=== PATIENT | male | born 1950 | race Caucasian/White ===

== ENCOUNTER 2016-09-11 13:01 | Inpatient (IN) | payer MEDICARE, OTHER ==
[2016-09-11] VITALS (7 sets, daily range): BP systolic 127–158; BP diastolic 62–71; PULSE 50–56; RESP 17–20; TEMP 97.8–99.2; O2SAT 96–100
[~2016-09-11] VITALS: Ht 167.6 cm; Wt 83.9 kg
[~2016-09-11 13:01] MED LIST: ASPI81TA82 PO; CLON.1 PO; FENO50TA PO; GLIP10TA6 PO; GLUCTAB PO; HYDR12.56 PO; IMDU30TA PO; LISI-363 PO; METO25 PO; MULT-65 PO; NITR4.9S3 SL; NORV10TA PO; PLAV75TA PO; RANO500 PO; ROSU40 PO
--- NOTE | 2016-09-11 13:09 | PD ---
Physical Exam Date Seen by Provider: September 11, 2016 Time Seen by Provider: 13:06 Narrative Pt is a 65 year old male presenting to the ED for evaluation of abdominal pain. Patient has pain from his epigastric area to the suprapubic area. He reports history of pancreatic abscess in June. Per pt's report a Ct scan was done in August and the cyst was still present. He also reports dark urine as well. After dinner last night the pain intensified, he felt nauseated and bloated. No documented fevers. VSS, awaiting bed placement. Data Data Last Documented VS Vital Signs Date Time Temp Pulse Resp B/P Pulse Ox O2 Delivery O2 Flow Rate FiO2 09/11/16 13:03 97.8 56 20 146/64 98 Room Air MDM Supervised Visit with SHADY: Shilpa Torres September 11, 2016 13:09
--- NOTE | 2016-09-11 13:17 | PD ---
HPI Chief Complaint: Abdominal Pain Time Seen by Provider: 13:16 Travel History International Travel<30 days: No Contact w/Intl Traveler<30days: No Traveled to known affect area: No History of Present Illness HPI 65 year old male with PMH of CHF, A. fib, CKD, DM, anemia, CAD status post bypass, PUD, pancreatitis presents to the ED for evaluation of 1 week history of left upper quadrant abdominal pain. Patient states this pain was worsened yesterday after eating a steak sandwich for dinner. He states that approximately 2 hours after dinner he began to feel increased pain, bloating and mild nausea. He states this pain is very similar to previous episodes of pancreatitis. He denies fever, chills, chest pain, palpitations, shortness of breath, vomiting, changes in bowel habits. He endorses increased passage of gas over the last week. Also complains of low volume of dark colored urine over the past few days. He is visiting from [place]. Patient endorses upper endoscopy in June of this year. PFSH Past Medical History Hx Anticoagulant Therapy: Yes Arthritis: Yes Cardiac Catheterization: Yes (X1) Cardiovascular Problems: Yes High Cholesterol: Yes Coronary Artery Disease: Yes Diabetes: Yes Diminished Hearing: Yes (gambell) Hypertension: Yes Immunizations Current: Yes Triglycerides - High: Yes Past Surgical History Coronary Artery Bypass Graft: Yes (X 2 BYPASS X 5) Coronary Stent: Yes (X1) Tonsillectomy: Yes Social History Alcohol Use: No Tobacco Use: No Substance Use: No Allergies-Medications (Allergen,Severity, Reaction): Coded Allergies: Morphine (Verified Adverse Reaction, Severe, Hallucinations, 09/11/16) Reported Meds & Prescriptions Reported Meds & Active Scripts Active Review of Systems Except as stated in HPI: all other systems reviewed are Neg Physical Exam Narrative GENERAL: Well-nourished, well-developed nontoxic appearing, pleasant white male in no acute distress. SKIN: Focused skin assessment warm/dry. Well-healed midline incisions over the chest and abdomen. Signs of infection. HEAD: Normocephalic. EYES: Mild scleral icterus. No injection or drainage. NECK: Supple, trachea midline. No JVD or lymphadenopathy. CARDIOVASCULAR: Regular rate and rhythm without murmurs, gallops, or rubs. RESPIRATORY: Breath sounds clear and equal bilaterally. No accessory muscle use. GASTROINTESTINAL: Abdomen soft, nondistended, tender to palpation in the right upper quadrant. Hyperactive bowel sounds. MUSCULOSKELETAL: No cyanosis, or edema. Patient is ambulatory and moves the extremities spontaneously. BACK: Nontender without obvious deformity. No CVA tenderness. Data Data Last Documented VS Vital Signs Date Time Temp Pulse Resp B/P Pulse Ox O2 Delivery O2 Flow Rate FiO2 09/11/16 15:10 50 18 127/62 99 Room Air 09/11/16 13:03 97.8 Orders Complete Blood Count With Diff (09/11/16 13:36) Comprehensive Metabolic Panel (09/11/16 13:36) Lipase (09/11/16 13:36) Lactic Acid (09/11/16 13:36) Prothrombin Time / Inr (Pt) (09/11/16:36) Act Partial Throm Time (Ptt) (09/11/16 13:36) Urinalysis - C+S If Indicated (09/11/16 13:36) Iv Access Insert/Monitor (09/11/16 13:36) Ecg Monitoring (09/11/16 13:36) Oximetry (09/11/16 13:36) NPO (09/11/16 13:36) Ondansetron Inj (Zofran Inj) (09/11/16 13:45) Sodium Chlor 0.9% 1000 Ml Inj (Ns 1000 M (09/11/16 13:36) Sodium Chloride 0.9% Flush (Ns Flush) (09/11/16 13:45) Electrocardiogram (09/11/16 13:36) Piperacil-Tazo 4.5 Gm Premix (Zosyn 4.5 (09/11/16 16:00) Us Abdomen Gallbladder (09/11/16 16:06) Ct Abd/Pel W Iv Contrast(Rout) (09/11/16 16:06) Labs Laboratory Tests Test 09/11/16 09/11/16 14:20 15:55 White Blood Count 9.3 TH/MM3 Red Blood Count 3.38 MIL/MM3 Hemoglobin 10.5 GM/DL Hematocrit 30.5 % Mean Corpuscular Volume 90.2 FL Mean Corpuscular Hemoglobin 31.0 PG Mean Corpuscular Hemoglobin 34.4 % Concent Red Cell Distribution Width 14.6 % Platelet Count 158 TH/MM3 Mean Platelet Volume 9.3 FL Neutrophils (%) (Auto) 80.4 % Lymphocytes (%) (Auto) 5.9 % Monocytes (%) (Auto) 10.0 % Eosinophils (%) (Auto) 3.2 % Basophils (%) (Auto) 0.5 % Neutrophils # (Auto) 7.5 TH/MM3 Lymphocytes # (Auto) 0.6 TH/MM3 Monocytes # (Auto) 0.9 TH/MM3 Eosinophils # (Auto) 0.3 TH/MM3 Basophils # (Auto) 0.0 TH/MM3 CBC Comment DIFF FINAL Differential Comment Prothrombin Time 11.6 SEC Prothromb Time International 1.0 RATIO Ratio Activated Partial 30.8 SEC Thromboplast Time Sodium Level 134 MEQ/L Potassium Level 4.9 MEQ/L Chloride Level 101 MEQ/L Carbon Dioxide Level 24.2 MEQ/L Anion Gap 9 MEQ/L Blood Urea Nitrogen 22 MG/DL Creatinine 1.27 MG/DL Estimat Glomerular Filtration 57 ML/MIN Rate Random Glucose 139 MG/DL Lactic Acid Level 1.1 mmol/L Calcium Level 9.0 MG/DL Total Bilirubin 4.3 MG/DL Aspartate Amino Transf 193 U/L (AST/SGOT) Alanine Aminotransferase 211 U/L (ALT/SGPT) Alkaline Phosphatase 1417 U/L Total Protein 7.9 GM/DL Albumin 2.9 GM/DL Lipase 44 U/L Urine Color YELLOW Urine Turbidity CLEAR Urine pH 5.0 Urine Specific [place] 1.011 Urine Protein NEG mg/dL Urine Glucose (UA) NEG mg/dL Urine Ketones NEG mg/dL Urine Occult Blood NEG Urine Nitrite NEG Urine Bilirubin NEG Urine Urobilinogen 2.0 MG/DL Urine Leukocyte Esterase NEG Urine RBC LESS THAN 1 /hpf Urine Mucus FEW /lpf Microscopic Urinalysis Comment CULT NOT INDICATED MDM Medical Decision Making Medical Screen Exam Complete: Yes Emergency Medical Condition: Yes Differential Diagnosis PUD versus GERD versus chest pain versus CHF versus pancreatitis versus gastritis versus obstruction versus other Narrative Course 65 year old male with PMH of CHF, A. fib, CKD, DM, anemia, CAD s/p bypass, PUD, pancreatitis presents to the ED for evaluation of 1 week history of left upper quadrant abdominal pain. Worsened ~2 hours after eating a steak sandwich for dinner. Endorses bloating and mild nausea. He denies fever, chills, chest pain , palpitations, shortness of breath, vomiting, changes in bowel habits. He endorses increased passage of gas over the last week. Also complains of low volume of dark colored urine over the past few days. He states this pain is very similar to previous episodes of pancreatitis. Patient states this was 2/2 pancreatic cyst. He underwent drain placement in Jun. He is visiting from [place]. Patient endorses upper endoscopy in June of this year. Temp 97.8, pulse 56, BP 146/64 on presentation. Physical exam reveals a nontoxic- appearing white male in no acute distress. There is mild scleral icterus and tenderness to palpation in the right upper quadrant but the remaining physical exam is otherwise unremarkable. IV was established. Patient was presenting continuous monitoring. He was administered a liter of normal saline and 4 mg Zofran. CBC: WBC 9.3, hemoglobin 10.5. CMP: BUN 22, creatinine 1.27. Bilirubin 4.3, AST 193, ALT 211, alkaline phosphatase 1417. Lipase: 44. Lactic: 1.1. UA: pending EKG: Rate 49, sinus rhythm. MI interval 135, QRS 104, QTC 437. LAD. No ST elevations or depressions. Reviewed by Dr. Brito. Patient was administered 4.[address] and LUQ ultrasound ordered and pending. Suspect biliary obstruction, possible cancer. Dr. Brito spoke with Dr. Hopper who agrees to accept the patient to the medical service with GI consult. Please see their notes for disposition. Diagnosis Primary Impression: Acute hepatitis Sharon Lujan September 11, 2016 13:17
[2016-09-11] MEDS ORDERED: SODIUM CHLOR 0.9% 1000 ML INJ 1,000 ML IV SCH (13:36)
[2016-09-11] MEDS ORDERED: SODIUM CHLORIDE 0.9% FLUSH 10 ML FLUSH IV FLUSH PRN ×2 (13:45→16:45)
[2016-09-11] MEDS ORDERED: ONDANSETRON HCL 4 MG/2 ML VIAL IVP ONE (13:45)
[2016-09-11 14:52] LABS: AUTOMATED NEUTROPHIL # 7.5 TH/MM3 (1.8-7.7); BASOPHIL % 0.5 % (0.0-2.0); EOSINOPHIL # 0.3 TH/MM3 (0-0.4); EOSINOPHIL % 3.2 % (0.0-4.0); HEMATOCRIT 30.5 % (39.0-51.0); HEMO FLAGS DIFF FINAL; LYMPH % 5.9 % (9.0-44.0); LYMPHOCYTE # 0.6 TH/MM3 (1.0-4.8); MEAN CELL VOLUME 90.2 FL (80.0-100.0); MEAN CORPUSCULAR HGB CONC 34.4 % (32.0-36.0); NEUT % 80.4 % (16.0-70.0); PLATELET COUNT 158 TH/MM3 (150-450); RED BLOOD COUNT 3.38 MIL/MM3 (4.50-5.90); RED CELL DISTRIBUTION WIDTH 14.6 % (11.6-17.2); WHITE BLOOD COUNT 9.3 TH/MM3 (4.0-11.0)
[2016-09-11 15:16] LABS: ANION GAP 9 MEQ/L (5-15); AST (GOT) 193 U/L (15-37); BICARBONATE 24.2 MEQ/L (21.0-32.0); BLOOD UREA NITROGEN 22 MG/DL (7-18); CHLORIDE 101 MEQ/L (98-107); GLOMERULAR FILTRATION RATE 57 ML/MIN (>89); SODIUM (NA) 134 MEQ/L (136-145)
[2016-09-11 15:22] LABS: APTT (PATIENT) 30.8 SEC (24.3-30.1); PROTHROMBIN TIME - PATIENT 11.6 SEC (9.8-11.6)
[2016-09-11 15:24] LABS: ALKALINE PHOSPHATASE 1417 U/L (45-117); ALT (GPT) 211 U/L (12-78); POTASSIUM 4.9 MEQ/L (3.5-5.1); TOTAL BILIRUBIN ADULT 4.3 MG/DL (0.2-1.0)
[2016-09-11] MEDS ORDERED: PIPERACIL-TAZO 4.5 GM PREMIX 100 ML IV ONE (16:00)
[2016-09-11 16:24] LABS: BLOOD, URINE NEG (NEG); COMMENT (UR) CULT NOT INDICATED; CULTURE IF INDICATED CULT NOT INDICATED; GLUCOSE,URINE NEG (NEG); KETONE, URINE NEG (NEG); MUCUS URINE FEW /lpf (OCC); NITRITE,URINE NEG (NEG); URINE COLOR YELLOW (YELLW/STRAW)
[2016-09-11] MEDS ORDERED: IOHEXOL 350 MG/ML 10 ML VIAL (for RAD DIAG) IV ONE (16:38)
[2016-09-11] MEDS ORDERED: BISACODYL 10 MG SUPP RECTAL PRN (16:45)
[2016-09-11] MEDS ORDERED: NALOXONE HCL 0.4 MG/ML AMP IV PRN (16:45)
[2016-09-11] MEDS ORDERED: ACETAMINOPHEN 325 MG TAB PO PRN (16:45)
[2016-09-11] MEDS ORDERED: ONDANSETRON HCL 4 MG/2 ML VIAL IVP PRN (16:45)
--- NOTE | 2016-09-11 17:02 | RADRPT ---
EXAM DATE/TIME: 09/11/2016 16:31 [facility] COMPARISON: No previous studies available for comparison. INDICATIONS : left upper quadrant pain past week. IV CONTRAST: 95 cc Omnipaque 350 (iohexol) IV ORAL CONTRAST: No oral contrast ingested. RADIATION DOSE: 11.56 CTDIvol (mGy) MEDICAL HISTORY : Cardiovascular disease. Hyperparathyroidism. Diabetes mellitus type 2. SURGICAL HISTORY : CABG ENCOUNTER: Initial ACUITY: 1 week PAIN SCALE: 7/10 LOCATION: Left upper quadrant TECHNIQUE: Volumetric scanning of the abdomen and pelvis was performed. Using automated exposure control and ad justment of the mA and/or kV according to patient size, radiation dose was kept as low as reasonably achievable to obtain optimal diagnostic quality images. FINDINGS: The head of the pancreas is enlarged to at least 6.3 cm. There is enlargement of the proximal pancrea tic duct and there is intra-and extrahepatic biliary ductal dilatation with the common bile duct abe uring 13 mm. The enlargement of the pancreatic head appears masslike and concern is for pancreatic ma lignancy. However pancreatitis could give this appearance especially given the stranding of fat aroun d the pancreas. There is mural thickening of the adjacent stomach and duodenum. There is stranding of fat extending into the right paracolic bladder and there is a small amount of free fluid. Pancreatic calcifications are characteristic of chronic pancreatitis. No suspicious lesions identified within the liver, spleen, adrenals, kidneys. There several borderline enlarged mesenteric lymph nodes. Within the pelvis no mass or adenopathy is present. No acute bony abnormality. CONCLUSION: 1. Enlargement of pancreatic head to 6.2 cm. Differential diagnosis is acute pancreatitis and pancrea tic malignancy. There is biliary ductal dilatation. There is thickening and edematous change in the a djacent stomach and proximal duodenum. There are borderline enlarged mesenteric lymph nodes. There is some free fluid in the right paracolic gutter and Pradhan's pouch. Royce Forbes MD on September 11, 2016 at 16:49 Board Certified Radiologist. This report was verified electronically.
[2016-09-11] MEDS: PANTOPRAZOLE SODIUM 40 MG VIAL IV PUSH SCH (17:14)
[2016-09-11] MEDS: SODIUM CHLOR 0.9% 1000 ML INJ 1,000 ML IV SCH (17:14)
[2016-09-11] MEDS ORDERED: TAMS0.4C4 PO (17:19)
[2016-09-11] MEDS ORDERED: POTA1TAB4 PO (17:19)
[2016-09-11] MEDS ORDERED: PROT40TA PO (17:19)
[2016-09-11] MEDS ORDERED: FURO1TAB62 PO ×2 (17:19→17:21)
[2016-09-11] MEDS ORDERED: LEVEMIR SQ (17:19)
[2016-09-11] MEDS ORDERED: MAGN400T2 PO (17:19)
[2016-09-11] MEDS ORDERED: INSU100V3 SQ (17:19)
[2016-09-11] MEDS ORDERED: VITA200012 PO (17:19)
--- NOTE | 2016-09-11 17:22 | PD.CONS ---
HPI History of Present Illness This is a 65 year old [gentleman] presented to the ER today with epigastric and lower abd pain. 8 ago he started having lower abd tenderness, belching with foul odor. Per his that is also when she noticed his yellow eyes. 5 days ago he noticed dark urine. A few days ago he started having diarrhea which lasted a day and a half and since. Subsequently he would have early satiety, epigastric discomfort and bloating after eating. Last night he had a steak sandwich and a few hours later he had the bloating and early satiety and severe pain in the lower abdomen along with nausea, dizziness. He had a "gall bladder " attack June 2015 and was dianosed with gangrenous gallbladder and had cholecystectomy. Hx severe acute pancreatitis last December in [place], was in ICU for 30 days. This past April he was back in hospital for anemia and a pancreatic cyst. HE has hx CHF. Last BM 36h ago and was soft but not liquidy. Denies vomiting, fever, diarrhea at this time, tarry stools, acid reflux. He did have an EGD in Jun 2016, doesn't recall specific findings. He has h/o ulcers. (Adali Mena) PFSH Past Medical History Per documentation from his prev GI visit: anemia pseudocyst of pancreas acute gangrenous cholecystitis acute pancreatitis CAD [place] CHF AF Necrotizing pancreatitis CKD DM hem pos stool recent - Jun 2016 thrombocytopenia gastric ulcer Past Surgical History cholecystectomy insertion drain abdomen for pseudocyst repair bilat femurs CABG x 2 times stent placement knee surgery x 12 right knee (Adali Mena) Coded Allergies: Morphine (Verified Adverse Reaction, Severe, Hallucinations, 09/11/16) Medications Current Medications Medications (Trade) Dose Ordered Sig/Anna Route PRN Reason Start Time Stop Time Status Last Admin Dose Admin Sodium Chloride (NS 1000 ml Inj) 1,000 ml @ 100 mls/hr Q10H IV 09/11/16 16:31 09/11/16 17:14 Sodium Chloride (NS Flush) 2 ml UNSCH PRN IV FLUSH FLUSH AFTER USING IV ACCESS 09/11/16 16:45 Sodium Chloride (NS Flush) 2 ml BID IV FLUSH 09/11/16 21:00 Acetaminophen (Tylenol) 650 mg Q4H PRN PO TEMP > 100.4 09/11/16 16:45 Ondansetron HCl (Zofran Inj) 4 mg Q6H PRN IVP NAUSEA OR VOMITING 09/11/16 16:45 Bisacodyl (Dulcolax Supp) 10 mg DAILY PRN RECTAL CONSTIPATION 09/11/16 16:45 Docusate Sodium (Colace) 100 mg Q12H PO 09/11/16 18:00 Heparin Sodium (Porcine) (Heparin Inj) 5,000 units Q8H SQ 09/11/16 18:00 Naloxone HCl 0.4 mg 0.4 mg UNSCH PRN IV SEE LABEL COMMENTS 09/11/16 16:45 Piperacillin Sod/ Tazobactam Sod (Zosyn 3.375 Gm Premix) 50 ml @ 100 mls/hr Q6H IV 09/11/16 22:00 Pantoprazole Sodium (Protonix Inj) 40 mg Q12H IV PUSH 09/11/16 17:00 09/11/16 17:14 Hydromorphone HCl (Dilaudid Pf Inj) 0.5 mg Q4H PRN IV PUSH PAIN SCALE 5 TO 10 09/11/16 16:45 Family History CVD prostate cancer- father asthma - mother Social History no etoh, tobacco, illicit drugs (Adali Mena) Review of Systems Constitutional: DENIES: Fever Eyes: DENIES: Blurred vision Ears, nose, mouth, throat: DENIES: Hearing loss Respiratory: DENIES: Cough Cardiovascular: DENIES: Chest pain Gastrointestinal: COMPLAINS OF: Abdominal pain, Nausea, Swelling of Abdomen, DENIES: Black stools, Bloody stools, Constipation, Diarrhea, Vomiting Genitourinary: DENIES: Hematuria Musculoskeletal: DENIES: Muscle aches Integumentary: COMPLAINS OF: Jaundice Hematologic/lymphatic: COMPLAINS OF: Bruising Neurologic: DENIES: Abnormal gait Psychiatric: DENIES: Confusion (Adali Mena) GI Exam Vitals I&O Vital Signs Date Time Temp Pulse Resp B/P Pulse Ox O2 Delivery O2 Flow Rate FiO2 09/11/16 16:46 100 21 09/11/16 15:10 50 18 127/62 99 Room Air 09/11/16 14:15 18 09/11/16 14:15 18 96 Room Air 09/11/16 13:03 97.8 56 20 146/64 98 Room Air Imaging Last Impressions Abdomen/Pelvis CT 09/11/16 1606 Signed Impressions: Service Date/Time: September 16:31 - CONCLUSION: 1. Enlargement of pancreatic head to 6.2 cm. Differential diagnosis is acute pancreatitis and pancreatic malignancy. There is biliary ductal dilatation. There is thickening and edematous change in the adjacent stomach and proximal duodenum. There are borderline enlarged mesenteric lymph nodes. There is some free fluid in the right paracolic gutter and Pradhan's pouch. Royce Forbes MD Laboratory Test 09/11/16 09/11/16 14:20 15:55 White Blood Count 9.3 TH/MM3 Red Blood Count 3.38 MIL/MM3 Hemoglobin 10.5 GM/DL Hematocrit 30.5 % Mean Corpuscular Volume 90.2 FL Mean Corpuscular Hemoglobin 31.0 PG Mean Corpuscular Hemoglobin 34.4 % Concent Red Cell Distribution Width 14.6 % Platelet Count 158 TH/MM3 Mean Platelet Volume 9.3 FL Neutrophils (%) (Auto) 80.4 % Lymphocytes (%) (Auto) 5.9 % Monocytes (%) (Auto) 10.0 % Eosinophils (%) (Auto) 3.2 % Basophils (%) (Auto) 0.5 % Neutrophils # (Auto) 7.5 TH/MM3 Lymphocytes # (Auto) 0.6 TH/MM3 Monocytes # (Auto) 0.9 TH/MM3 Eosinophils # (Auto) 0.3 TH/MM3 Basophils # (Auto) 0.0 TH/MM3 CBC Comment DIFF FINAL Differential Comment Prothrombin Time 11.6 SEC Prothromb Time International 1.0 RATIO Ratio Activated Partial 30.8 SEC Thromboplast Time Sodium Level 134 MEQ/L Potassium Level 4.9 MEQ/L Chloride Level 101 MEQ/L Carbon Dioxide Level 24.2 MEQ/L Anion Gap 9 MEQ/L Blood Urea Nitrogen 22 MG/DL Creatinine 1.27 MG/DL Estimat Glomerular Filtration 57 ML/MIN Rate Random Glucose 139 MG/DL Lactic Acid Level 1.1 mmol/L Calcium Level 9.0 MG/DL Total Bilirubin 4.3 MG/DL Aspartate Amino Transf 193 U/L (AST/SGOT) Alanine Aminotransferase 211 U/L (ALT/SGPT) Alkaline Phosphatase 1417 U/L Total Protein 7.9 GM/DL Albumin 2.9 GM/DL Lipase 44 U/L Urine Color YELLOW Urine Turbidity CLEAR Urine pH 5.0 Urine Specific [place] 1.011 Urine Protein NEG mg/dL Urine Glucose (UA) NEG mg/dL Urine Ketones NEG mg/dL Urine Occult Blood NEG Urine Nitrite NEG Urine Bilirubin NEG Urine Urobilinogen 2.0 MG/DL Urine Leukocyte Esterase NEG Urine RBC LESS THAN 1 /hpf Urine Mucus FEW /lpf Microscopic Urinalysis Comment CULT NOT INDICATED Physical Examination HEENT: EOMI; normocephalic; atraumatic; +icterus CHEST: CTA CARDIAC: RRR ABDOMEN: Soft, nondistended, TTP lower abd, epigastrum; no hepatosplenomegaly; bowel sounds are present in all four quadrants. EXTREMITIES: No clubbing, cyanosis, or edema. SKIN: Normal; no rash; jaundice. POSTPARTUM RN: No focal deficits; alert and oriented times three. (Adali Mena) Assessment and Plan Plan ASSESSMENT - epigastric and lower abd pain, nausea - pt has hx acalc gangrenous cholecystitis s/p cholecystectomy, acute pancreatitis requiring stay in ICU for 30 days, pancreatic pseudocyst. CT ---> 1. Enlargement of pancreatic head to 6.2 cm. Differential diagnosis is acute pancreatitis and pancreatic malignancy. There is biliary ductal dilatation. There is thickening and edematous change in the adjacent stomach and proximal duodenum. There are borderline enlarged mesenteric lymph nodes. There is some free fluid in the right paracolic gutter and Pradhan's pouch. Will do ERCP. He may need EUS later on. - elevated LFTs with jaundice- obstructive pattern, suspect secondary to above. PLAN - ERCP with stent placement tomorrow - clears for now - monitor labs - check CEA, CA 19-9 - IGG4 - lipid panel - supportive care - further recommendations after results of above This pt seen by myself and Dr Sam and this note is written on her behalf ( Adali Mena) Physician Comments seen, examined agree with above ERCP/stent in am will need EUS at one point obtain records , had recent ct abdomen/pelvis (Lindsay Sam MD) Adali Mena September 11, 2016 17:22 Lindsay Sam MD September 11, 2016 18:19
[2016-09-11] MEDS ORDERED: ISOS30TA3 PO (17:25)
[2016-09-11] MEDS ORDERED: MULTTAB67 PO (17:25)
[2016-09-11] MEDS ORDERED: CARV3.12 PO (17:25)
[2016-09-11] MEDS ORDERED: NITR400A3 SL (17:25)
[2016-09-11] MEDS ORDERED: LISI-519 PO (17:25)
[2016-09-11] MEDS ORDERED: RANO500 PO (17:25)
[2016-09-11] MEDS ORDERED: ATOR40TA16 PO (17:25)
[2016-09-11] MEDS ORDERED: ASPI81TA5 PO (17:25)
--- NOTE | 2016-09-11 17:56 | HHI.HP ---
HPI Service [facility] Primary Care Physician Non-Staff Admission Diagnosis jaundice Diagnoses: Chief Complaint: Abdominal pain Travel History International Travel<30 Days: No Contact w/Intl Traveler <30 Da: No Traveled to Known Affected Are: No History of Present Illness 65-year-old male with a past medical history of CAD, A. fib, CHF, BPH, DM, PUD, and pancreatitis who presented with abdominal pain. The patient states that 8 days ago he began having abdominal discomfort. He states it felt like he was kicked in the stomach in a bandlike distribution across his midabdomen. He states that his symptoms got a little bit better for 2 or 3 days, but then having getting progressively worse since then. He's been having associated nausea and bloating. He denies any vomiting, but he feels scared to eat. He states that 5 days ago he had diarrhea, now his stools are soft but no longer watery. He states that he had chills last night, denies any specific fevers. The patient's reports that the patient has appeared yellow for the past 10 days. The patient states that last July he had his gallbladder removed. The patient states that he had an extensive hospitalization last December when he was critically ill from pancreatitis. He states he also had a hospitalization in May and June of this year where he had a pancreatic cyst that required a drain placement. The patient states that most of this workup was done where he lives most of the time in [place], but he also has a house here in the area where he and his are visiting currently. Review of Systems Except as stated in HPI: all other systems reviewed are Neg Past Family Social History Past Medical History Hypertension A. fib Diabetes mellitus Peptic ulcer disease Coronary artery disease Chronic kidney disease History of pancreatitis Congestive heart failure Past Surgical History cholecystectomy insertion drain abdomen for pseudocyst CABG x 2 times Carotid stent placement, last one in 2012 knee surgeries right knee femur surgery bilaterally Reported Medications Aspirin DR (Aspirin) 81 Mg Tabdr 81 Mg PO HS Isosorbide Mononitrate ER (Isosorbide Mononitrate) 30 Mg Cee 30 Mg PO DAILY Lisinopril 5 Mg Tab 5 Mg PO BID Multiple Vitamin 1 Tab 1 Tab PO DAILY Nitromist Lingual Branscomb (Nitroglycerin) 400 Mcg/Act Branscomb 1 Branscomb SL DIRECTED PRN ONE SPRAY NEEDED FOR CHEST PAIN, MAY REPEAT EVERY FIVE MINUTES FOR A TOTAL OF 3 DOSES OR CALL 911 IF NO RELIEF Ranexa ER 12 HR (Ranolazine) 500 Mg Tab 500 Mg PO BID Atorvastatin (Atorvastatin Calcium) 40 Mg Tab 40 Mg PO HS Carvedilol 3.125 Mg Tab 3.125 Mg PO DAILY Lasix (Furosemide) 20 Mg Tab 20 Mg PO DAILY Lasix (Furosemide) 20 Mg Tab 20 Mg PO BID Humulin N Inj (Insulin Human NPH) 1,000 Unit/10 Ml Vial Unknown Dose SQ ACHS PRN Vitamin D3 (Cholecalciferol) 2,000 Unit Tab 2,000 Units PO DAILY Levemir Inj (Insulin Detemir) 1,000 unit/ 10 ML Vial 10 Units SQ BID Do not mix with any other Insulin. Magnesium Oxide 400 Mg Tab 400 Mg PO HS Protonix (Pantoprazole Sodium) 40 Mg Tab 40 Mg PO DAILY Tamsulosin (Tamsulosin HCl) 0.4 Mg Cap 0.4 Mg PO HS K-Tab (Potassium Chloride) 20 Meq Tab 20 Meq PO DAILY Allergies: Coded Allergies: Morphine (Verified Adverse Reaction, Severe, Hallucinations, 09/11/16) Active Ordered Medications Current Medications Medications (Trade) Dose Ordered Sig/Anna Route Start Time Stop Time Status Last Admin (NS 1000 ml Inj) 1,000 ml @ 70 mls/hr [id number] IV 09/11/16 16:31 09/11/16 17:14 (NS Flush) 2 ml UNSCH PRN IV FLUSH 09/11/16 16:45 (NS Flush) 2 ml BID IV FLUSH 09/11/16 21:00 (Tylenol) 650 mg Q4H PRN PO 09/11/16 16:45 (Zofran Inj) 4 mg Q6H PRN IVP 09/11/16 16:45 (Dulcolax Supp) 10 mg DAILY PRN RECTAL 09/11/16 16:45 (Colace) 100 mg Q12H PO 09/11/16 18:00 (Heparin Inj) 5,000 units Q8H SQ 09/11/16 18:00 Naloxone HCl 0.4 mg 0.4 mg UNSCH PRN IV 09/11/16 16:45 (Zosyn 3.375 Gm Premix) 50 ml @ 100 mls/hr Q6H IV 09/11/16 22:00 (Protonix Inj) 40 mg Q12H IV PUSH 09/11/16 17:00 09/11/16 17:14 (Dilaudid Pf Inj) 0.5 mg Q4H PRN IV PUSH 09/11/16 16:45 (Lipitor) 40 mg HS PO 09/11/16 21:00 UNV (Coreg) 3.125 mg DAILY PO 09/12/16 09:00 UNV (Levemir Inj) 10 units BID SQ 09/11/16 21:00 UNV (Imdur) 30 mg DAILY PO 09/12/16 09:00 UNV (Prinivil) 5 mg BID PO 09/11/16 21:00 UNV (Protonix) 40 mg DAILY PO 09/12/16 09:00 UNV (Ranexa) 500 mg BID PO 09/11/16 21:00 UNV (Flomax) 0.4 mg HS PO 09/11/16 21:00 UNV Family History Father had a heart attack and prostate cancer Mother had asthma Social History no etoh, tobacco, illicit drugs Physical Exam Vital Signs Vital Signs Date Time Temp Pulse Resp B/P Pulse Ox O2 Delivery O2 Flow Rate FiO2 09/11/16 16:46 100 21 09/11/16 15:10 50 18 127/62 99 Room Air 09/11/16 14:15 18 09/11/16 14:15 18 96 Room Air 09/11/16 13:03 97.8 56 20 146/64 98 Room Air Physical Exam GENERAL: Well-developed well-nourished. In no acute distress. SKIN: Warm and dry. Jaundiced. HEENT: Normocephalic. Pupils equal and round. Scleral icterus. Mucous membranes pink and moist. CARDIOVASCULAR: Regular rate and rhythm. No murmur appreciated. RESPIRATORY: No accessory muscle use. Clear to auscultation. Breath sounds equal bilaterally. GASTROINTESTINAL: Abdomen soft, generalized mild TTP, nondistended. Bowel sounds x4. MUSCULOSKELETAL: No obvious deformities. No clubbing or cyanosis. No edema. NEUROLOGICAL: Awake and alert. No focal neurological deficits. Moves upper and lower extremities spontaneously. Normal speech. PSYCHIATRIC: Appropriate mood and affect; insight and judgment normal. Laboratory Laboratory Tests Test 09/11/16 09/11/16 14:20 15:55 White Blood Count 9.3 Red Blood Count 3.38 Hemoglobin 10.5 Hematocrit 30.5 Mean Corpuscular Volume 90.2 Mean Corpuscular Hemoglobin 31.0 Mean Corpuscular Hemoglobin 34.4 Concent Red Cell Distribution Width 14.6 Platelet Count 158 Mean Platelet Volume 9.3 Neutrophils (%) (Auto) 80.4 Lymphocytes (%) (Auto) 5.9 Monocytes (%) (Auto) 10.0 Eosinophils (%) (Auto) 3.2 Basophils (%) (Auto) 0.5 Neutrophils # (Auto) 7.5 Lymphocytes # (Auto) 0.6 Monocytes # (Auto) 0.9 Eosinophils # (Auto) 0.3 Basophils # (Auto) 0.0 CBC Comment DIFF FINAL Differential Comment Prothrombin Time 11.6 Prothromb Time International 1.0 Ratio Activated Partial 30.8 Thromboplast Time Sodium Level 134 Potassium Level 4.9 Chloride Level 101 Carbon Dioxide Level 24.2 Anion Gap 9 Blood Urea Nitrogen 22 Creatinine 1.27 Estimat Glomerular Filtration 57 Rate Random Glucose 139 Lactic Acid Level 1.1 Calcium Level 9.0 Total Bilirubin 4.3 Aspartate Amino Transf 193 (AST/SGOT) Alanine Aminotransferase 211 (ALT/SGPT) Alkaline Phosphatase 1417 Total Protein 7.9 Albumin 2.9 Lipase 44 Urine Color YELLOW Urine Turbidity CLEAR Urine pH 5.0 Urine Specific [place] 1.011 Urine Protein NEG Urine Glucose (UA) NEG Urine Ketones NEG Urine Occult Blood NEG Urine Nitrite NEG Urine Bilirubin NEG Urine Urobilinogen 2.0 Urine Leukocyte Esterase NEG Urine RBC LESS THAN 1 Urine Mucus FEW Microscopic Urinalysis Comment CULT NOT INDICATED Result Diagram: 09/11/16 1420 09/11/16 1420 Imaging Last Impressions Abdomen/Pelvis CT 09/11/16 1606 Signed Impressions: Service Date/Time: September 16:31 - CONCLUSION: 1. Enlargement of pancreatic head to 6.2 cm. Differential diagnosis is acute pancreatitis and pancreatic malignancy. There is biliary ductal dilatation. There is thickening and edematous change in the adjacent stomach and proximal duodenum. There are borderline enlarged mesenteric lymph nodes. There is some free fluid in the right paracolic gutter and Pradhan's pouch. Royce Forbes MD Assessment and Plan Assessment and Plan 65-year-old male with a past medical history of CAD, A. fib, CHF, BPH, DM, PUD, and pancreatitis who presented with abdominal pain Abdominal pain/obstructive jaundice/pancreatic mass: Reviewed: Elevation of total bilirubin, AST, ALT, alkaline phosphatase. Lipase within normal limits. Abdominal CT shows enlargement of the pancreatic head with possible mass, biliary ductal dilation, thickening and edematous change adjacent stomach and proximal duodenum, Motrin and mesenteric lymph nodes, free fluid in the right paracolic gutter and Morison's pouch. Afebrile with no leukocytosis. -Consult gastroenterology -Clear liquids for now -IV Dilaudid as needed for pain -Gentle IVF with CHF -Antiemetics as needed -IV Zosyn -IV Protonix Diabetes mellitus: Continue home Levemir. Monitor Accu-Cheks. SSI coverage. A. fib/CAD/CHF/HTN/HLD: Chronic, stable. Hold him aspirin for now pending possible GI procedure. Continue lisinopril, tamsulosin, Ranexa, carvedilol, atorvastatin, Imdur. Hold Lasix for now. DVT prophylaxis: Heparin Code Status Full Code Discussed Condition With Patient with at bedside, Dr. Hopper at bedside, GI ENVIRONMENTAL ENGINEERING TECHNICIAN Attending Statement Patient seen in his bedroom in the presence of ESTRELLA Mr. Davis and his continue present care and follow closely, GI specialist in to see the patient. Ryan Ramirez September 11, 2016 17:56 J Luis Keys MD September 11, 2016 19:26
--- NOTE | 2016-09-11 17:59 | EKG ---
Date Performed: 09/11/2016 Time Performed: 14:33:13 PTAGE: 65 years EKG: SINUS BRADYCARDIA MARKED LEFT AXIS DEVIATION SEPTAL MYOCARDIAL INFARCTION ABNORMAL ECG NO PREVIOUS TRACING DOCTOR: Lars Mejía Interpretating Date/Time 09/11/2016 17:58:34
[2016-09-11] MEDS ORDERED: DEXTROSE 50% IN WATER 50 ML VIAL(D50) IV PUSH PRN (18:00)
[2016-09-11] MEDS: DOCUSATE SODIUM 100 MG CAP PO SCH (18:00)
[2016-09-11] MEDS ORDERED: GLUCAGON 1 MG/ML VIAL OTHER PRN (18:00)
[2016-09-11] MEDS: HEPARIN SODIUM - SQ 10,000 UNITS/ML VIAL SQ SCH (18:35)
--- NOTE | 2016-09-11 18:43 | RADRPT ---
EXAM DATE/TIME: 09/11/2016 17:40 [place] COMPARISON: CT PULMONARY ANGIOGRAM, December 29, 2014, 14:56. CT ABDOMEN & PELVIS W CONTRAST, September 11, 2016, 16:31. INDICATIONS : Right upper quadrant pain. MEDICAL HISTORY : Arthritis. Hypercholesterolemia. Pancreatitis. Coronary arterdy disease. HTN. Hyperlipidemia. Abdomin al pain. Diabetes. Jaundice. SURGICAL HISTORY : Tonsillectomy. CABG. Coronary artery stent. Cholecystectomy. Cardiac cath. Bilateral femur surgery wi th screws and plates. Right knee. Bilateral hip.Pancreas cyst stent. ENCOUNTER: Initial ACUITY: 1 week PAIN SCORE: 7/10 LOCATION: Right upper quadrant MEASUREMENTS: LIVER: 20.2 cm length COMMON DUCT: 12 mm RIGHT KIDNEY: 11.9 x 6.2 x 5.9 cm FINDINGS: LIVER: Pronounced biliary ductal dilatation. COMMON DUCT: Dilated GALLBLADDER: Surgically absent PANCREAS: Large heterogeneous pancreatic head mass RIGHT KIDNEY: No evidence of hydronephrosis, stone, or mass. CONCLUSION: Pancreatic head mass with prominent biliary ductal dilatation Patrick Walsh MD on September 11, 2016 at 18:38 Board Certified Radiologist. This report was verified electronically.
[2016-09-11 18:59] LABS: CREATINE KINASE 151 U/L (39-308)
--- NOTE | 2016-09-11 19:12 | PD ---
Data Data Last Documented VS Vital Signs Date Time Temp Pulse Resp B/P Pulse Ox O2 Delivery O2 Flow Rate FiO2 09/11/16 15:10 50 18 127/62 99 Room Air 09/11/16 13:03 97.8 Orders Complete Blood Count With Diff (09/11/16 13:36) Comprehensive Metabolic Panel (09/11/16 13:36) Lipase (09/11/16 13:36) Lactic Acid (09/11/16:36) Prothrombin Time / Inr (Pt) (09/11/16:36) Act Partial Throm Time (Ptt) (09/11/16 13:36) Urinalysis - C+S If Indicated (09/11/16:36) Iv Access Insert/Monitor (09/11/16:36) Ecg Monitoring (09/11/16:36) Oximetry (09/11/16:36) NPO (09/11/16:36) Ondansetron Inj (Zofran Inj) (09/11/16 13:45) Sodium Chlor 0.9% 1000 Ml Inj (Ns 1000 M (09/11/16 13:36) Sodium Chloride 0.9% Flush (Ns Flush) (09/11/16 13:45) Electrocardiogram (09/11/16 13:36) Piperacil-Tazo 4.5 Gm Premix (Zosyn 4.5 (09/11/16 16:00) Us Abdomen Gallbladder (09/11/16 16:06) Ct Abd/Pel W Iv Contrast(Rout) (09/11/16 16:06) Admit Order (Ed Use Only) (09/11/16 16:32) Admit To Inpatient (09/11/16 ) Code Status (09/11/16 16:31) Vital Signs (Adult) Q4H (09/11/16 16:31) Activity Oob Ad Rafia (09/11/16 16:31) Puller Over / Telemetry .CONTINUOUS (09/11/16 16:31) Intake + Output AMPARO.QSHIFT (09/11/16 16:31) Notify Dr: Other (09/11/16 16:31) Sodium Chlor 0.9% 1000 Ml Inj (Ns 1000 M (09/11/16 16:31) Sodium Chloride 0.9% Flush (Ns Flush) (09/11/16 16:45) Sodium Chloride 0.9% Flush (Ns Flush) (09/11/16 21:00) Acetaminophen (Tylenol) (09/11/16 16:45) Ondansetron Inj (Zofran Inj) (09/11/16 16:45) Bisacodyl Supp (Dulcolax Supp) (09/11/16 16:45) Docusate Sodium (Colace) (09/11/16 18:00) Basic Metabolic Panel (Bmp) (09/12/16 06:00) Complete Blood Count With Diff (09/12/16 06:00) Creatine Kinase (Cpk) (09/11/16 16:31) Creatine Kinase (Cpk) (09/11/16 22:31) Troponin I (09/11/16 16:31) Troponin I (09/11/16 22:31) Prothrombin Time / Inr (Pt) (09/12/16 06:00) Blood Culture (09/11/16 16:31) Lipase (09/12/16 06:00) Hepatic Functional Panel (09/12/16 06:00) Resp Oxygen [place] C Titrat 1-4 L (09/11/16 ) Heparin Inj (Heparin Inj) (09/11/16 18:00) Naloxone Inj (Narcan Inj) (09/11/16 16:45) Inpatient Certification (09/11/16 ) Labs Laboratory Tests Test 09/11/16 09/11/16 14:20 15:55 White Blood Count 9.3 TH/MM3 Red Blood Count 3.38 MIL/MM3 Hemoglobin 10.5 GM/DL Hematocrit 30.5 % Mean Corpuscular Volume 90.2 FL Mean Corpuscular Hemoglobin 31.0 PG Mean Corpuscular Hemoglobin 34.4 % Concent Red Cell Distribution Width 14.6 % Platelet Count 158 TH/MM3 Mean Platelet Volume 9.3 FL Neutrophils (%) (Auto) 80.4 % Lymphocytes (%) (Auto) 5.9 % Monocytes (%) (Auto) 10.0 % Eosinophils (%) (Auto) 3.2 % Basophils (%) (Auto) 0.5 % Neutrophils # (Auto) 7.5 TH/MM3 Lymphocytes # (Auto) 0.6 TH/MM3 Monocytes # (Auto) 0.9 TH/MM3 Eosinophils # (Auto) 0.3 TH/MM3 Basophils # (Auto) 0.0 TH/MM3 CBC Comment DIFF FINAL Differential Comment Prothrombin Time 11.6 SEC Prothromb Time International 1.0 RATIO Ratio Activated Partial 30.8 SEC Thromboplast Time Sodium Level 134 MEQ/L Potassium Level 4.9 MEQ/L Chloride Level 101 MEQ/L Carbon Dioxide Level 24.2 MEQ/L Anion Gap 9 MEQ/L Blood Urea Nitrogen 22 MG/DL Creatinine 1.27 MG/DL Estimat Glomerular Filtration 57 ML/MIN Rate Random Glucose 139 MG/DL Lactic Acid Level 1.1 mmol/L Calcium Level 9.0 MG/DL Total Bilirubin 4.3 MG/DL Aspartate Amino Transf 193 U/L (AST/SGOT) Alanine Aminotransferase 211 U/L (ALT/SGPT) Alkaline Phosphatase 1417 U/L Total Creatine Kinase 151 U/L Troponin I LESS THAN 0.02 NG/ML Total Protein 7.9 GM/DL Albumin 2.9 GM/DL Lipase 44 U/L Urine Color YELLOW Urine Turbidity CLEAR Urine pH 5.0 Urine Specific [place] 1.011 Urine Protein NEG mg/dL Urine Glucose (UA) NEG mg/dL Urine Ketones NEG mg/dL Urine Occult Blood NEG Urine Nitrite NEG Urine Bilirubin NEG Urine Urobilinogen 2.0 MG/DL Urine Leukocyte Esterase NEG Urine RBC LESS THAN 1 /hpf Urine Mucus FEW /lpf Microscopic Urinalysis Comment CULT NOT INDICATED MDM Supervised Visit with SHADY: Yes Narrative Course The history, exam, and medical decision-making in the associated midlevel provider note were completed with my assistance. I reviewed and agree with the findings presented. I attest that I had a [id number] encounter with the patient on the same day, and personally performed and documented my assessment and findings in the medical record. *My assessment and Findings: This is a 65-year-old male who has a history of pancreatitis complicated by renal failure earlier this year who presents to the emergency department with abdominal discomfort. Patient has evidence of jaundice on exam with a total bilirubin of 4 elevated alkaline phosphatase and transaminitis concerning for underlying liver disease or obstruction. Patient will be admitted for GI evaluation. Diagnosis Primary Impression: Acute hepatitis Marlyn Brito MD September 11, 2016 19:12
[2016-09-11] MEDS: ATORVASTATIN 40 MG TAB PO SCH (20:58)
[2016-09-11] MEDS: LISINOPRIL 5 MG TAB PO SCH (20:59)
[2016-09-11] MEDS: TAMSULOSIN HCL 0.4 MG CAP PO SCH (20:59)
[2016-09-11] MEDS: INSULIN DETEMIR 100 UNITS/ML VIAL SQ SCH (20:59)
[2016-09-11] MEDS: HYDROmorphone HCL PF 1 MG/ML VIAL IV PUSH PRN (20:59)
[2016-09-11] MEDS: RANOLAZINE 500 MG EXTENDED RELEASE TAB PO SCH (21:00)
[2016-09-11] MEDS: SODIUM CHLORIDE 0.9% FLUSH 10 ML FLUSH IV FLUSH SCH (21:00)
[2016-09-11] MEDS: INSULIN ASPART SUPPLEMENTAL SCALE SQ SCH (21:00)
[2016-09-11] MEDS: PIPERACIL-TAZO 3.375 GM PREMIX 50 ML IV SCH (22:54)
[2016-09-12] VITALS (8 sets, daily range): BP systolic 101–138; BP diastolic 54–66; PULSE 51–60; RESP 17–19; TEMP 97.7–98.5; O2SAT 93–100
[2016-09-12] MEDS: HYDROmorphone HCL PF 1 MG/ML VIAL IV PUSH PRN ×4 (01:24→18:34)
[2016-09-12] MEDS: HEPARIN SODIUM - SQ 10,000 UNITS/ML VIAL SQ SCH ×2 (01:25→10:00)
[2016-09-12] MEDS: PIPERACIL-TAZO 3.375 GM PREMIX 50 ML IV SCH ×4 (03:49→21:31)
[2016-09-12] MEDS: SODIUM CHLOR 0.9% 1000 ML INJ 1,000 ML IV SCH ×2 (03:49→21:30)
[2016-09-12 05:10] LABS: BASOPHIL % 0.3 % (0.0-2.0); EOSINOPHIL # 0.3 TH/MM3 (0-0.4); EOSINOPHIL % 3.6 % (0.0-4.0); HEMATOCRIT 28.2 % (39.0-51.0); HEMO FLAGS DIFF FINAL; LYMPH % 6.2 % (9.0-44.0); LYMPHOCYTE # 0.6 TH/MM3 (1.0-4.8); MEAN CELL VOLUME 90.6 FL (80.0-100.0); MEAN CORPUSCULAR HEMOGLOBIN 29.9 PG (27.0-34.0); MONO % 12.3 % (0.0-8.0); NEUT % 77.6 % (16.0-70.0); PLATELET COUNT 144 TH/MM3 (150-450); RED BLOOD COUNT 3.12 MIL/MM3 (4.50-5.90); RED CELL DISTRIBUTION WIDTH 14.6 % (11.6-17.2); WHITE BLOOD COUNT 9.1 TH/MM3 (4.0-11.0)
[2016-09-12 05:20] LABS: INTERNATIONAL NORMALIZED RATIO 1.1 RATIO
[2016-09-12 05:32] LABS: BICARBONATE 24.8 MEQ/L (21.0-32.0); POTASSIUM 3.3 MEQ/L (3.5-5.1)
[2016-09-12] MEDS: DOCUSATE SODIUM 100 MG CAP PO SCH ×2 (05:43→17:15)
[2016-09-12] MEDS: PANTOPRAZOLE SODIUM 40 MG VIAL IV PUSH SCH ×2 (05:44→17:15)
[2016-09-12 05:48] LABS: HDL CHOLESTEROL 17.5 MG/DL (40.0-60.0); TOTAL BILIRUBIN ADULT 3.6 MG/DL (0.2-1.0)
[2016-09-12] MEDS: INSULIN ASPART SUPPLEMENTAL SCALE SQ SCH ×4 (06:30→21:34)
[2016-09-12] MEDS: POTASSIUM CHLOR 20 MEQ PREMIX 100 ML IV SCH ×2 (07:57→09:00)
[2016-09-12] MEDS: SODIUM CHLORIDE 0.9% FLUSH 10 ML FLUSH IV FLUSH SCH ×2 (07:58→21:00)
[2016-09-12] MEDS: ISOSORBIDE MONONITRATE 30 MG TAB PO SCH (08:02)
[2016-09-12] MEDS: CARVEDILOL 3.125 MG TAB PO SCH (08:02)
[2016-09-12] MEDS: INSULIN DETEMIR 100 UNITS/ML VIAL SQ SCH ×2 (08:02→21:33)
[2016-09-12] MEDS: RANOLAZINE 500 MG EXTENDED RELEASE TAB PO SCH ×2 (08:03→21:30)
[2016-09-12] MEDS: LISINOPRIL 5 MG TAB PO SCH ×2 (08:03→21:30)
[2016-09-12] MEDS: PANTOPRAZOLE SOD 40 MG DELAYED RELEASE TAB PO SCH (08:03)
[2016-09-12] MEDS ORDERED: LACTATED RINGER'S 1000 ML IV PRN (08:45)
[2016-09-12] MEDS ORDERED: CHLORHEXIDINE GLUCONATE 2 % 1 PACK (2 CLOTHS) TOPICAL PRN (08:45)
[2016-09-12] MEDS ORDERED: POVIDONE IODINE 5% (ANTISEPSIS KIT) 4 APPLICATIONS EACH NARE PRN (08:45)
[2016-09-12] MEDS ORDERED: METOPROLOL TARTRATE 25 MG TAB PO PRN (08:45)
[2016-09-12] MEDS ORDERED: SODIUM CHLORID 0.9% 500 ML IV PRN (08:45)
--- NOTE | 2016-09-12 13:00 | HHI.PR ---
Subjective Remarks Follow-up for abdominal pain. The patient is waiting to go for ERCP today. He continues to complain of bandlike midabdominal discomfort overnight, relief with pain medication. He states he had a normal bowel movement last night. Objective Vitals Vital Signs Date Time Temp Pulse Resp B/P Pulse Ox O2 Delivery O2 Flow Rate FiO2 09/12/16 09:15 93 21 09/12/16 08:23 18 09/12/16 07:58 97.7 55 19 115/54 95 09/12/16 04:00 97.8 55 17 101/54 95 09/12/16 00:00 98.2 60 17 128/62 100 09/11/16 20:00 99.2 54 17 144/65 100 09/11/16 19:00 54 09/11/16 18:36 52 18 158/71 99 Room Air 09/11/16 16:46 100 21 09/11/16 15:10 50 18 127/62 99 Room Air 09/11/16 14:15 18 09/11/16 14:15 18 96 Room Air 09/11/16 13:03 97.8 56 20 146/64 98 Room Air I/O 09/11/16 09/11/16 09/11/16 09/12/16 09/12/16 09/12/16 07:00 15:00 23:00 07:00 15:00 23:00 Intake Total 480 ml 0 ml 0 ml Output Total 400 ml 300 ml Balance 80 ml -300 ml 0 ml Intake Oral 480 ml 0 ml 0 ml Output Urine Total 400 ml 300 ml # Voids 2 Result Diagram: 09/12/16 0332 09/12/16 0332 Imaging Last Impressions Gall Bladder Ultrasound 09/11/16 1606 Signed Impressions: Service Date/Time: September 17:40 - CONCLUSION: Pancreatic head mass with prominent biliary ductal dilatation Patrick Walsh MD Abdomen/Pelvis CT 09/11/16 1606 Signed Impressions: Service Date/Time: September 16:31 - CONCLUSION: 1. Enlargement of pancreatic head to 6.2 cm. Differential diagnosis is acute pancreatitis and pancreatic malignancy. There is biliary ductal dilatation. There is thickening and edematous change in the adjacent stomach and proximal duodenum. There are borderline enlarged mesenteric lymph nodes. There is some free fluid in the right paracolic gutter and Pradhan's pouch. Royce Forbes MD Objective Remarks GENERAL: Well-developed well-nourished. In no acute distress. SKIN: Warm and dry. Jaundiced. HEENT: Normocephalic. Pupils equal and round. Scleral icterus. Mucous membranes pink and moist. CARDIOVASCULAR: Regular rate and rhythm. No murmur appreciated. RESPIRATORY: No accessory muscle use. Clear to auscultation. Breath sounds equal bilaterally. GASTROINTESTINAL: Abdomen soft, nontender, nondistended. Bowel sounds x4. MUSCULOSKELETAL: No obvious deformities. No clubbing or cyanosis. No edema. NEUROLOGICAL: Awake and alert. No focal neurological deficits. Moves upper and lower extremities spontaneously. Normal speech. PSYCHIATRIC: Appropriate mood and affect; insight and judgment normal. A/P Assessment and Plan 65-year-old male with a past medical history of CAD, A. fib, CHF, BPH, DM, PUD, and pancreatitis who presented with abdominal pain Abdominal pain/obstructive jaundice/pancreatic mass: Reviewed: Elevation of total bilirubin, AST, ALT, alkaline phosphatase. Lipase within normal limits. Abdominal CT shows enlargement of the pancreatic head with possible mass, biliary ductal dilation, thickening and edematous change adjacent stomach and proximal duodenum, Motrin and mesenteric lymph nodes, free fluid in the right paracolic gutter and Morison's pouch. Afebrile with no leukocytosis. CEA and CA-19-9 within normal limits. -Consulted gastroenterology, planning on ERCP -Clear liquids for now -IV Dilaudid as needed for pain -Gentle IVF with CHF -Antiemetics as needed -IV Zosyn -IV Protonix -Monitor LFTs, stable overnight Diabetes mellitus: Continue home Levemir. Monitor Accu-Cheks. SSI coverage. A. fib/CAD/CHF/HTN/HLD: Chronic, stable. Hold home aspirin for now pending GI procedure. Continue lisinopril, tamsulosin, Ranexa, carvedilol, atorvastatin, Imdur. Hold Lasix for now. Hyperkalemia: Potassium 3.3. Replace orally when the patient is not nothing by mouth. Follow up labs in a.m. including magnesium. DVT prophylaxis: Hold Heparin for now with ERCP. SCDs. Plan of care discussed with Dr. Gilbert. Ryan Ramirez September 12, 2016 13:00
[2016-09-12] MEDS ORDERED: POTASSIUM CHLORIDE 20 MEQ CONTROLLED RELEASE TAB PO ONE (14:00)
[2016-09-12] MEDS ORDERED: PROPOFOL 200 MG/20 ML AMP IV ONE (16:06)
--- NOTE | 2016-09-12 16:49 | PD.PROCEDR ---
GI Procedure REFERRING PHYSICIAN Dr. Hopper PROCEDURE PERFORMED EGD and an attempted ERCP INDICATION FOR PROCEDURE Obstructive jaundice and pancreatic mass PROCEDURE: The procedure, risks and benefits were discussed with Mr. Mo and informed consent was obtained. Anesthesia sedated him with Diprivan. He was placed in the left lateral decubitus position. EGD: The Pentax videoscope was introduced through the oropharynx and advanced to the second portion of the duodenum under direct visualization. Retroflexion was performed in the stomach. FINDINGS: Esophagus this was normal Stomach there was a large hiatal hernia otherwise gastric mucosa was unremarkable but there was somewhat of a deformity in the antrum and it was difficult to pass the scope into the duodenum Duodenum the duodenal bulb was compressed was difficult to navigate the mucosa was unremarkable this is most likely secondary to external compression ERCP: Patient was placed in a prone position. The Pentax videoscope was introduced through the oropharynx and advanced to the stomach. FINDINGS: Initially we used the ERCP scope to advance to the second portion of the duodenum to further evaluate obstructive jaundice and place a stent after multiple attempts I was unable to pass the ERCP scope from the stomach into the duodenum and subsequently an EGD was performed and it was determined that the patient had compression of the antrum and the duodenal bulb ESTIMATED BLOOD LOSS: None SPECIMENS REMOVED: None COMPLICATIONS: None IMPRESSION: Hiatal hernia Antral and duodenal deformity from external compression PLAN: We will ask interventional radiology to proceed with PTC and biliary drain placement and pancreatic head biopsy Continue with current supportive care Reji Romeo MD September 12, 2016 16:49
[2016-09-12 20:48] LABS: INDIRECT BILIRUBIN 1.1 MG/DL (0.0-0.8); TOTAL BILIRUBIN ADULT 2.6 MG/DL (0.2-1.0)
[2016-09-12] MEDS: ATORVASTATIN 40 MG TAB PO SCH (21:30)
[2016-09-12] MEDS: TAMSULOSIN HCL 0.4 MG CAP PO SCH (21:30)
[2016-09-13] VITALS (7 sets, daily range): BP systolic 109–144; BP diastolic 51–67; PULSE 46–51; RESP 16–17; TEMP 96.2–97.9; O2SAT 93–99
[2016-09-13] MEDS: HYDROmorphone HCL PF 1 MG/ML VIAL IV PUSH PRN ×4 (00:04→20:45)
[2016-09-13] MEDS: PIPERACIL-TAZO 3.375 GM PREMIX 50 ML IV SCH ×4 (04:18→20:45)
[2016-09-13] MEDS: DOCUSATE SODIUM 100 MG CAP PO SCH ×2 (04:19→16:20)
[2016-09-13] MEDS: PANTOPRAZOLE SODIUM 40 MG VIAL IV PUSH SCH ×2 (04:19→17:32)
[2016-09-13] MEDS: INSULIN ASPART SUPPLEMENTAL SCALE SQ SCH ×4 (06:33→21:00)
[2016-09-13 07:00] LABS: AUTOMATED NEUTROPHIL # 6.1 TH/MM3 (1.8-7.7); BASOPHIL % 0.4 % (0.0-2.0); EOSINOPHIL # 0.3 TH/MM3 (0-0.4); HEMATOCRIT 27.8 % (39.0-51.0); HEMO FLAGS DIFF FINAL; LYMPH % 6.9 % (9.0-44.0); LYMPHOCYTE # 0.6 TH/MM3 (1.0-4.8); MEAN CELL VOLUME 90.4 FL (80.0-100.0); MEAN CORPUSCULAR HEMOGLOBIN 30.7 PG (27.0-34.0); MEAN CORPUSCULAR HGB CONC 33.9 % (32.0-36.0); MONO % 13.5 % (0.0-8.0); NEUT % 75.2 % (16.0-70.0); PLATELET COUNT 154 TH/MM3 (150-450); RED BLOOD COUNT 3.07 MIL/MM3 (4.50-5.90); RED CELL DISTRIBUTION WIDTH 14.6 % (11.6-17.2)
[2016-09-13 07:13] LABS: INTERNATIONAL NORMALIZED RATIO 1.1 RATIO; PROTHROMBIN TIME - PATIENT 11.8 SEC (9.8-11.6)
[2016-09-13] MEDS: INSULIN DETEMIR 100 UNITS/ML VIAL SQ SCH ×2 (07:17→23:52)
[2016-09-13 07:28] LABS: ALT (GPT) 115 U/L (12-78); ANION GAP 9 MEQ/L (5-15); AST (GOT) 67 U/L (15-37); BICARBONATE 23.3 MEQ/L (21.0-32.0); BLOOD UREA NITROGEN 16 MG/DL (7-18); CHLORIDE 107 MEQ/L (98-107); GLOMERULAR FILTRATION RATE 63 ML/MIN (>89); MAGNESIUM 1.6 MG/DL (1.5-2.5); POTASSIUM 3.6 MEQ/L (3.5-5.1); SODIUM (NA) 139 MEQ/L (136-145)
[2016-09-13 07:45] LABS: ALKALINE PHOSPHATASE 971 U/L (45-117); TOTAL BILIRUBIN ADULT 2.1 MG/DL (0.2-1.0)
[2016-09-13] MEDS: PANTOPRAZOLE SOD 40 MG DELAYED RELEASE TAB PO SCH (07:55)
[2016-09-13] MEDS: LISINOPRIL 5 MG TAB PO SCH ×2 (07:55→20:50)
[2016-09-13] MEDS: RANOLAZINE 500 MG EXTENDED RELEASE TAB PO SCH ×2 (07:55→20:46)
[2016-09-13] MEDS: ISOSORBIDE MONONITRATE 30 MG TAB PO SCH (07:55)
[2016-09-13] MEDS: SODIUM CHLORIDE 0.9% FLUSH 10 ML FLUSH IV FLUSH SCH ×2 (07:56→20:35)
[2016-09-13] MEDS: CARVEDILOL 3.125 MG TAB PO SCH (07:56)
[2016-09-13] MEDS: SODIUM CHLOR 0.9% 1000 ML INJ 1,000 ML IV SCH (08:57)
--- NOTE | 2016-09-13 12:11 | HHI.GIFU ---
Subjective Remarks Resting in bed. No n/v. No fevers. Continues to have abdominal pain, controlled with pain meds. Thirsty, wanting to drink if he is not going to have procedure done today. (Bettye Joel) Objective Vitals I&O Vital Signs Date Time Temp Pulse Resp B/P Pulse Ox O2 Delivery O2 Flow Rate FiO2 09/13/16 12:00 96.9 48 17 113/51 93 09/13/16 08:00 96.2 48 16 118/58 99 09/13/16 04:00 97.2 48 17 109/52 98 09/13/16 00:00 97.9 50 17 132/60 95 09/12/16 20:48 21 09/12/16 20:13 53 09/12/16 20:00 98.5 53 17 138/64 95 09/12/16 16:53 98.6 53 20 144/65 98 Nasal Cannula 2 09/12/16 16:45 54 20 157/72 96 Nasal Cannula 2 09/12/16 16:30 54 20 125/60 96 Nasal Cannula 2 09/12/16 16:21 98.6 56 20 114/55 100 Nasal Cannula 2 09/12/16 13:03 18 I/O 09/12/16 09/12/16 09/12/16 09/13/16 09/13/16 09/13/16 07:00 15:00 23:00 07:00 15:00 23:00 Intake Total 0 ml 0 ml 765 ml 525 ml 416 ml Output Total 300 ml 450 ml Balance -300 ml -450 ml 765 ml 525 ml 416 ml Intake Oral 0 ml 0 ml 240 ml 0 ml IV Total 525 ml 525 ml 416 ml Output Urine Total 300 ml 450 ml # Voids 2 1 # Bowel Movements 0 Laboratory Laboratory Tests Test 09/12/16 09/13/16 19:15 05:20 Total Bilirubin 2.6 2.1 Direct Bilirubin 1.5 Indirect Bilirubin 1.1 Aspartate Amino Transf 95 67 (AST/SGOT) Alanine Aminotransferase 145 115 (ALT/SGPT) Alkaline Phosphatase 1183 971 Total Protein 7.4 6.7 Albumin 2.4 2.3 White Blood Count 8.0 Red Blood Count 3.07 Hemoglobin 9.4 Hematocrit 27.8 Mean Corpuscular Volume 90.4 Mean Corpuscular Hemoglobin 30.7 Mean Corpuscular Hemoglobin 33.9 Concent Red Cell Distribution Width 14.6 Platelet Count 154 Mean Platelet Volume 9.3 Neutrophils (%) (Auto) 75.2 Lymphocytes (%) (Auto) 6.9 Monocytes (%) (Auto) 13.5 Eosinophils (%) (Auto) 4.0 Basophils (%) (Auto) 0.4 Neutrophils # (Auto) 6.1 Lymphocytes # (Auto) 0.6 Monocytes # (Auto) 1.1 Eosinophils # (Auto) 0.3 Basophils # (Auto) 0.0 CBC Comment DIFF FINAL Differential Comment Prothrombin Time 11.8 Prothromb Time International 1.1 Ratio Sodium Level 139 Potassium Level 3.6 Chloride Level 107 Carbon Dioxide Level 23.3 Anion Gap 9 Blood Urea Nitrogen 16 Creatinine 1.16 Estimat Glomerular Filtration 63 Rate Random Glucose 123 Calcium Level 8.6 Magnesium Level 1.6 Lipase 50 Date/Time Procedure Status Source Growth 09/11/16 18:30 Aerobic Blood Culture - Preliminary Resulted Blood Peripheral NO GROWTH IN 2 DAYS 09/11/16 18:30 Anaerobic Blood Culture - Preliminary Resulted Blood Peripheral NO GROWTH IN 2 DAYS Imaging Last Impressions Gall Bladder Ultrasound 09/11/16 1606 Signed Impressions: Service Date/Time: September 17:40 - CONCLUSION: Pancreatic head mass with prominent biliary ductal dilatation Patrick Walsh MD Abdomen/Pelvis CT 09/11/16 1606 Signed Impressions: Service Date/Time: September 16:31 - CONCLUSION: 1. Enlargement of pancreatic head to 6.2 cm. Differential diagnosis is acute pancreatitis and pancreatic malignancy. There is biliary ductal dilatation. There is thickening and edematous change in the adjacent stomach and proximal duodenum. There are borderline enlarged mesenteric lymph nodes. There is some free fluid in the right paracolic gutter and Pradhan's pouch. Royce Forbes MD Physical Exam HEENT: Normocephalic; atraumatic; no jaundice. CHEST: CTA CARDIAC: RRR ABDOMEN: Soft, nondistended, epigastric tenderness; no hepatosplenomegaly; bowel sounds are present in all four quadrants. EXTREMITIES: No clubbing, cyanosis, or edema. SKIN: Normal; no rash; no jaundice. MANAGER DOCUMENTATION: No focal deficits; alert and oriented times three. (Bettye Joel) Assessment and Plan Plan ASSESSMENT - Biliary obstruction, Elevated LFTs. Abdomen/Pelvis CT (09/11/16)---> 1. Enlargement of pancreatic head to 6.2 cm. Differential diagnosis is acute pancreatitis and pancreatic malignancy. There is biliary ductal dilatation. There is thickening and edematous change in the adjacent stomach and proximal duodenum. There are borderline enlarged mesenteric lymph nodes. There is some free fluid in the right paracolic gutter and Pradhan's pouch. Gall Bladder US (09/11/16)----- > Pancreatic head mass with prominent biliary ductal dilatation S/P Unsuccessful ERCP (09/02/16)-----> Unable to pass the ERCP scope from the stomach into the duodenum and subsequently an EGD was performed and it was determined that the patient had compression of the antrum and the duodenal bulb. Hiatal hernia, Antral and duodenal deformity from external compression. IR consulted for PTC and biliary drain placement and pancreatic head biopsy. This will be done Thursday per IR. LFT slightly improved today with T. Bili 2.1, AST 67, ALT 115, Alk Phosph 971. Lipase 50. WBC 8.0. Afebrile. - Pancreatic head mass. Of note, patient has a hx of pancreatitis. Plan is for PTHC with pancreatic head mass biopsy by IR on Thursday. CEA 1.8, Ca19-9 22.8. IgG 4 level pending. - Abdominal pain, nausea secondary to above. Controlled. PLAN - Clear liquids - IVF - PPI - IgG 4 pending - Monitor labs - Plan for PTHC on Thursday by IR- Supportive care - Notify GI of any fevers, worsening pain, leukocytosis - Further recommendations after results of above - This pt seen by myself and Dr Sam and this note is written on her behalf ( Bettye Joel) Physician Comments seen, examined agree with above full liquid diet, await records PTC, pancreatic biopsy on Thursday by IR, his will address bilairy obstruction we will consult surgery as he external compression on stomach and duodenum, creating some degree of gastric obstruction (Lindsay Sam MD) Bettye Joel September 13, 2016 12:11 Lindsay Sam MD September 13, 2016 13:57
[2016-09-13] MEDS: TAMSULOSIN HCL 0.4 MG CAP PO SCH (20:46)
[2016-09-13] MEDS: ATORVASTATIN 40 MG TAB PO SCH (20:46)
--- NOTE | 2016-09-13 22:29 | MB ---
cc: YONINEENA MADDOX DATE OF CONSULTATION 09/13/[address] Sam REASON FOR CONSULTATION Pancreatic mass, questionable pancreatic malignancy versus severe pancreatitis. HISTORY OF PRESENT ILLNESS This is a pleasant 65-year-old gentleman who has had problems with pancreatitis for some time. He had a cholecystectomy last year. he developed what sounds like a pancreatic pseudocyst and underwent percutaneous drainage successfully. He then had another bout of pancreatitis. Recent imaging shows a mass in the head of the pancreas measuring 6.3 cm with biliary dilatation. He had undergone attempted ERCP with attempted stent placement. This was unable to be done. Gastroenterology has consulted Interventional radiology to place a percutaneous biliary drain. Surgery is consulted for consideration of surgical intervention. PAST MEDICAL HISTORY 1. Diabetes. 2. Atrial fibrillation. 3. He has had few bypass surgeries, a few heart attacks as well. 4. Open cholecystectomy where it was fairly gangrenous according to the patient. 5. He had cardiac stents as well. 6. He has had some hip surgery. MEDICATIONS Outpatient 1. Aspirin 2. Avastin 3. Vitamins. 4. Lasix 5. Humulin 6. Isosorbide mononitrate. 7. Lisinopril. 8. Magnesium. 9. Nitroglycerin sublingual 10. Protonix. 11. Potassium 12. Ranexa 13. Tamsulosin capsule each night. ALLERGIES MORPHINE PHYSICAL EXAMINATION GENERAL: A robust gentleman pleasant, articulate who appears to be a good historian. NECK: Supple. CHEST: Clear HEART: Regular rate, bradycardic. ABDOMEN: Slightly obese, soft, with mild soreness. He has surgical scar in the subcostal area meeting a mediastinotomy scar with a small hernia. No rebound or guarding. NEUROLOGIC: Alert, oriented without focal deficits. Cranial nerves II-XII grossly intact. LABORATORY DATA White count 8, H&H /. Chemistry looks fairly good with a slightly elevated liver enzymes with an alk phos of 971. His lipase is 50. CA 19-9 is 22. The CEA is 1.8 which are normal. He has some IgG studies pending. Urinalysis was clear. IMAGING STUDIES An ultrasound of the abdomen just shows the pancreatic mass with biliary ductal dilatation. CT scan abdomen and pelvis shows the same. This may be pancreatitis versus malignancy. The patient states he had a CT scan done earlier this year that showed pancreatitis in the mass. We are trying to get these results to see if this is a new finding or not. ASSESSMENT A 65-year-old gentleman with a history of pancreatitis in the past or pancreatic pseudocyst that he says was drained percutaneously. At this time, we will keep from in the hospital. We will obtain old records. Radiology is putting a biliary drain in percutaneously. This will allow decompression of the biliary tree as gastroenterologists were unable to do this by ERCP. At this time, no surgical intervention needed at this time. He may require something later, especially if this is a malignancy. This was discussed with the patient and at the bedside. They appeared to understand. MD SCOTT Scott/ /9:44 PM /10:16 PM
--- NOTE | 2016-09-13 23:46 | HHI.PR ---
Subjective Remarks patient seen this morning. Reports that abdominal pain is stable. Denies any nausea or vomiting. Positive bowel movement. Objective Vital Signs Date Time Temp Pulse Resp B/P Pulse Ox O2 Delivery O2 Flow Rate FiO2 09/13/16 20:00 97.9 51 16 144/67 95 09/13/16 16:00 97.0 46 16 137/55 95 09/13/16 12:00 96.9 48 17 113/51 93 09/13/16 08:00 96.2 48 16 118/58 99 09/13/16 04:00 97.2 48 17 109/52 98 09/13/16 00:00 97.9 50 17 132/60 95 I/O 09/12/16 09/12/16 09/12/16 09/13/16 09/13/16 09/13/16 07:00 15:00 23:00 07:00 15:00 23:00 Intake Total 0 ml 0 ml 765 ml 525 ml 896 ml Output Total 300 ml 450 ml Balance -300 ml -450 ml 765 ml 525 ml 896 ml Intake Oral 0 ml 0 ml 240 ml 0 ml 480 ml IV Total 525 ml 525 ml 416 ml Output Urine Total 300 ml 450 ml # Voids 2 1 2 # Bowel Movements 0 0 Result Diagram: 09/13/1651909/13/16519 Objective Remarks GENERAL: He shouldn't sitting up in bed. Appears uncomfortable. Alert and oriented 3. SKIN: Warm and dry. HEAD: Normocephalic. EYES: She does have some scleral icterus. No injection or drainage. NECK: Supple, trachea midline. No JVD. CARDIOVASCULAR: Regular rate and rhythm without murmurs, gallops, or rubs. RESPIRATORY: Breath sounds equal bilaterally. No accessory muscle use. GASTROINTESTINAL: Abdomen soft, non-tender, nondistended. MUSCULOSKELETAL: No cyanosis, or edema. BACK: Nontender without obvious deformity. No CVA tenderness. A/P Assessment and Plan 65-year-old male with a past medical history of CAD, A. fib, CHF, BPH, DM, PUD, and pancreatitis who presented with abdominal pain //Abdominal pain/obstructive jaundice/pancreatic mass: Reviewed: Elevation of total bilirubin, AST, ALT, alkaline phosphatase. Lipase within normal limits. Abdominal CT shows enlargement of the pancreatic head with possible mass, biliary ductal dilation, thickening and edematous change adjacent stomach and proximal duodenum, Motrin and mesenteric lymph nodes, free fluid in the right paracolic gutter and Morison's pouch. Afebrile with no leukocytosis. CEA and CA-19-9 within normal limits. -Consulted gastroenterology, planning on ERCP -Clear liquids for now -IV Dilaudid as needed for pain -Gentle IVF with CHF -Antiemetics as needed -Continue IV Zosyn -Continue IV Protonix -09/13. Monitor LFTs. Slight improvement in bilirubin, AST, ALT, alkaline phosphatase. Appreciate GI assistance. //Diabetes mellitus: -Continue home Levemir. Monitor Accu-Cheks. -Glucose level reviewed and acceptable. SSI coverage. //A. fib/CAD/CHF/HTN/HLD: Chronic, stable. Hold home aspirin for now pending GI procedure. Continue lisinopril, tamsulosin, Ranexa, carvedilol, atorvastatin , Imdur. -- Bradycardia, however Vital signs continue stable. Continue to Hold Lasix for now. //Hypokalemia: -Improved after after replacement. -Continue to monitor. DVT prophylaxis: Hold Heparin for now with ERCP. SCDs. Hitesh Gilbert MD September 13, 2016 23:45
[2016-09-14] VITALS (7 sets, daily range): BP systolic 124–184; BP diastolic 60–74; PULSE 46–52; RESP 16–19; TEMP 97.1–98.5; O2SAT 93–96
[2016-09-14] MEDS: SODIUM CHLOR 0.9% 1000 ML INJ 1,000 ML IV SCH ×3 (01:11→23:29)
[2016-09-14] MEDS: PIPERACIL-TAZO 3.375 GM PREMIX 50 ML IV SCH ×4 (02:37→21:24)
[2016-09-14] MEDS: HYDROmorphone HCL PF 1 MG/ML VIAL IV PUSH PRN ×3 (05:30→23:28)
[2016-09-14] MEDS: PANTOPRAZOLE SODIUM 40 MG VIAL IV PUSH SCH ×2 (05:31→09:31)
[2016-09-14] MEDS: DOCUSATE SODIUM 100 MG CAP PO SCH ×2 (05:35→18:09)
[2016-09-14 05:40] LABS: AUTOMATED NEUTROPHIL # 6.4 TH/MM3 (1.8-7.7); BASOPHIL % 0.3 % (0.0-2.0); EOSINOPHIL # 0.4 TH/MM3 (0-0.4); EOSINOPHIL % 4.2 % (0.0-4.0); HEMO FLAGS DIFF FINAL; LYMPH % 7.1 % (9.0-44.0); LYMPHOCYTE # 0.6 TH/MM3 (1.0-4.8); MEAN CELL VOLUME 90.7 FL (80.0-100.0); MEAN CORPUSCULAR HEMOGLOBIN 30.1 PG (27.0-34.0); MEAN CORPUSCULAR HGB CONC 33.2 % (32.0-36.0); MONO % 12.6 % (0.0-8.0); NEUT % 75.8 % (16.0-70.0); PLATELET COUNT 149 TH/MM3 (150-450); RED BLOOD COUNT 3.09 MIL/MM3 (4.50-5.90); RED CELL DISTRIBUTION WIDTH 14.3 % (11.6-17.2); WHITE BLOOD COUNT 8.4 TH/MM3 (4.0-11.0)
[2016-09-14] MEDS: INSULIN ASPART SUPPLEMENTAL SCALE SQ SCH ×4 (05:58→20:07)
[2016-09-14 06:02] LABS: ALKALINE PHOSPHATASE 943 U/L (45-117); ALT (GPT) 84 U/L (12-78); ANION GAP 6 MEQ/L (5-15); AST (GOT) 42 U/L (15-37); BLOOD UREA NITROGEN 12 MG/DL (7-18); CHLORIDE 108 MEQ/L (98-107); GLOMERULAR FILTRATION RATE 71 ML/MIN (>89); POTASSIUM 3.2 MEQ/L (3.5-5.1); SODIUM (NA) 140 MEQ/L (136-145); TOTAL BILIRUBIN ADULT 1.5 MG/DL (0.2-1.0)
[2016-09-14] MEDS: CARVEDILOL 3.125 MG TAB PO SCH (08:19)
[2016-09-14] MEDS: PANTOPRAZOLE SOD 40 MG DELAYED RELEASE TAB PO SCH (08:20)
[2016-09-14] MEDS: LISINOPRIL 5 MG TAB PO SCH ×2 (08:20→20:01)
[2016-09-14] MEDS: RANOLAZINE 500 MG EXTENDED RELEASE TAB PO SCH ×2 (08:20→20:00)
[2016-09-14] MEDS: ISOSORBIDE MONONITRATE 30 MG TAB PO SCH (08:20)
[2016-09-14] MEDS: SODIUM CHLORIDE 0.9% FLUSH 10 ML FLUSH IV FLUSH SCH ×2 (08:24→19:57)
[2016-09-14] MEDS: INSULIN DETEMIR 100 UNITS/ML VIAL SQ SCH ×2 (08:24→20:06)
[2016-09-14] MEDS ORDERED: MAGNESIUM SULFATE 1 GM PREMIX 100 ML IV ONE (12:00)
[2016-09-14] MEDS: POTASSIUM CHLOR 10 MEQ PREMIX 100 ML IV SCH ×3 (13:36→18:09)
--- NOTE | 2016-09-14 13:48 | HHI.PR ---
Subjective Remarks Patient seen this morning around 11 AM. Says he is feeling all right. Abdominal pain is stable. Denies any nausea or vomiting. Denies any chest pain or shortness of breath. Objective Vital Signs Date Time Temp Pulse Resp B/P Pulse Ox O2 Delivery O2 Flow Rate FiO2 09/14/16 12:00 97.8 46 18 132/62 96 09/14/16 08:00 98.1 46 18 137/63 96 09/14/16 04:00 98.5 48 18 124/60 93 09/14/16 00:00 98.0 47 16 144/65 93 09/13/16 20:00 97.9 51 16 144/67 95 09/13/16 19:20 51 09/13/16 16:00 97.0 46 16 137/55 95 I/O 09/13/16 09/13/16 09/13/16 09/14/16 09/14/16 09/14/16 07:00 15:00 23:00 07:00 15:00 23:00 Intake Total 525 ml 896 ml 642 ml 850 ml 578 ml Balance 525 ml 896 ml 642 ml 850 ml 578 ml Intake Oral 0 ml 480 ml 240 ml IV Total 525 ml 416 ml 402 ml 850 ml 578 ml # Voids 1 2 3 # Bowel Movements 0 0 Result Diagram: 09/14/16 0457 09/14/16 0457 Objective Remarks GENERAL: Patient sitting up in bed. Appears uncomfortable. Alert and oriented 3. No appreciable change on exam. SKIN: Warm and dry. HEAD: Normocephalic. EYES: She does have some scleral icterus. No injection or drainage. NECK: Supple, trachea midline. No JVD. CARDIOVASCULAR: Regular rate and rhythm without murmurs, gallops, or rubs. RESPIRATORY: Breath sounds equal bilaterally. No accessory muscle use. GASTROINTESTINAL: Abdomen soft, non-tender, nondistended. MUSCULOSKELETAL: No cyanosis, or edema. BACK: Nontender without obvious deformity. No CVA tenderness. A/P Assessment and Plan 65-year-old male with a past medical history of CAD, A. fib, CHF, BPH, DM, PUD, and pancreatitis who presented with abdominal pain //Abdominal pain/obstructive jaundice/pancreatic mass: Reviewed: Elevation of total bilirubin, AST, ALT, alkaline phosphatase. Lipase within normal limits. Abdominal CT shows enlargement of the pancreatic head with possible mass, biliary ductal dilation, thickening and edematous change adjacent stomach and proximal duodenum, Motrin and mesenteric lymph nodes, free fluid in the right paracolic gutter and Morison's pouch. Afebrile with no leukocytosis. CEA and CA-19-9 within normal limits. -Consulted gastroenterology, planning on ERCP -Clear liquids for now -IV Dilaudid as needed for pain -Gentle IVF with CHF -Antiemetics as needed -Continue IV Zosyn -Continue IV Protonix -09/14. Again with slight improvement in LFTs. Appreciate GI assistance. Planning for biliary tube placement 09/15. //Diabetes mellitus: -Continue home Levemir. Monitor Accu-Cheks. -Glucose level again reviewed and acceptable. SSI coverage. //A. fib/CAD/CHF/HTN/HLD: Chronic, stable. Hold home aspirin for now pending GI procedure. Continue lisinopril, tamsulosin, Ranexa, carvedilol, atorvastatin , Imdur. -- Still with Bradycardia, however Vital signs continue stable. Continue to Hold Lasix for now. //Hypokalemia: -Improved after after replacement. -Continue to monitor. -09/14. Potassium low. Replaced. Magnesium replaced as well. Monitor DVT prophylaxis: Hold Heparin for now with ERCP. SCDs. Hitesh Gilbert MD September 14, 2016 13:48
[2016-09-14] MEDS: ATORVASTATIN 40 MG TAB PO SCH (20:01)
[2016-09-14] MEDS: TAMSULOSIN HCL 0.4 MG CAP PO SCH (20:01)
[2016-09-15] VITALS (10 sets, daily range): BP systolic 116–161; BP diastolic 61–71; PULSE 42–95; RESP 16–19; TEMP 96.4–98; O2SAT 92–98
[2016-09-15] MEDS: PANTOPRAZOLE SODIUM 40 MG VIAL IV PUSH SCH ×2 (03:57→17:15)
[2016-09-15] MEDS: PIPERACIL-TAZO 3.375 GM PREMIX 50 ML IV SCH ×4 (03:57→20:56)
[2016-09-15 04:28] LABS: AUTOMATED NEUTROPHIL # 6.1 TH/MM3 (1.8-7.7); BASOPHIL % 0.5 % (0.0-2.0); EOSINOPHIL # 0.4 TH/MM3 (0-0.4); EOSINOPHIL % 5.2 % (0.0-4.0); HEMATOCRIT 28.2 % (39.0-51.0); HEMO FLAGS DIFF FINAL; LYMPH % 8.6 % (9.0-44.0); LYMPHOCYTE # 0.7 TH/MM3 (1.0-4.8); MEAN CELL VOLUME 90.7 FL (80.0-100.0); MEAN CORPUSCULAR HEMOGLOBIN 30.1 PG (27.0-34.0); MEAN CORPUSCULAR HGB CONC 33.2 % (32.0-36.0); MONO % 12.2 % (0.0-8.0); NEUT % 73.5 % (16.0-70.0); PLATELET COUNT 154 TH/MM3 (150-450); RED BLOOD COUNT 3.11 MIL/MM3 (4.50-5.90); RED CELL DISTRIBUTION WIDTH 14.2 % (11.6-17.2); WHITE BLOOD COUNT 8.3 TH/MM3 (4.0-11.0)
[2016-09-15 04:54] LABS: BICARBONATE 24.8 MEQ/L (21.0-32.0); MAGNESIUM 1.9 MG/DL (1.5-2.5); POTASSIUM 3.5 MEQ/L (3.5-5.1)
[2016-09-15 04:56] LABS: INDIRECT BILIRUBIN 0.3 MG/DL (0.0-0.8); TOTAL BILIRUBIN ADULT 1.2 MG/DL (0.2-1.0)
[2016-09-15] MEDS: DOCUSATE SODIUM 100 MG CAP PO SCH ×2 (05:40→17:15)
[2016-09-15] MEDS: INSULIN ASPART SUPPLEMENTAL SCALE SQ SCH ×4 (05:42→21:00)
[2016-09-15] MEDS: SODIUM CHLORIDE 0.9% FLUSH 10 ML FLUSH IV FLUSH SCH ×2 (08:18→20:56)
[2016-09-15] MEDS: INSULIN DETEMIR 100 UNITS/ML VIAL SQ SCH ×2 (08:19→21:03)
[2016-09-15] MEDS: CARVEDILOL 3.125 MG TAB PO SCH (08:20)
[2016-09-15] MEDS: LISINOPRIL 5 MG TAB PO SCH ×2 (08:29→20:55)
[2016-09-15] MEDS: ISOSORBIDE MONONITRATE 30 MG TAB PO SCH (08:29)
[2016-09-15] MEDS: PANTOPRAZOLE SOD 40 MG DELAYED RELEASE TAB PO SCH (08:29)
[2016-09-15] MEDS: RANOLAZINE 500 MG EXTENDED RELEASE TAB PO SCH ×2 (08:29→20:55)
[2016-09-15] MEDS ORDERED: LEVOFLOXACIN 500 MG PREMIX INJ 100 ML IV ONE (11:04)
[2016-09-15] MEDS ORDERED: fentaNYL CITRATE 250 MCG/5 ML AMP ONE (11:05)
[2016-09-15] MEDS ORDERED: MIDAZOLAM HCL 5 MG/5 ML VIAL ONE (11:05)
[2016-09-15] MEDS ORDERED: IOHEXOL 350 MG/ML 50 ML BTL (for RAD DIAG) ONE (12:03)
--- NOTE | 2016-09-15 12:15 | PD.RAD ---
Post Procedure Progress Note Pre Procedure Diagnosis: (1) Pancreatic mass (2) Biliary obstruction Post Procedure Diagnosis: (1) Pancreatic mass (2) Biliary obstruction Procedure Date: September 15, 2016 Supervising Radiologist: Horacio Garrido JR Proceduralist/Assist: Kevin Ramon, RT(R), Nazia Sorenson RT(R)(CV) Anesthesia: Conscious Sedation Plan of Activity Patient to Unit: ROPU Patient Condition: Good See PACS Report for procedural detail/treatment Drainage Procedure Procedure 1 Imaging Guidance: Fluoroscopy Side: Right Procedure Type: Biliary Drainage Procedure: Placement Samoan: 8 Fluid Description: Bilious Findings: Obstruction of CBD at pancreatic head level. Placed int/ext biliary drain. Plan Can consider biopsy of CBD following several days of decompression Jr. Hema,Horacio Tidwell MD September 15, 2016 12:15
--- NOTE | 2016-09-15 15:14 | HHI.PR ---
Subjective Subjective Notes DAILY PROGRESS NOTE FOR SURGICAL ATTENDING, DR. NEENA PRAKASH Resting in bed Reports jaundice is better now Asking what time procedure will be Objective Vitals/I&O Vital Signs Date Time Temp Pulse Resp B/P Pulse Ox O2 Delivery O2 Flow Rate FiO2 09/15/16 14:26 98.0 95 17 116/61 95 09/14/16 18:03 21 09/12/16 16:53 Nasal Cannula 2 Labs Laboratory Tests Test 09/15/16 02:58 White Blood Count 8.3 Red Blood Count 3.11 Hemoglobin 9.4 Hematocrit 28.2 Mean Corpuscular Volume 90.7 Mean Corpuscular Hemoglobin 30.1 Mean Corpuscular Hemoglobin 33.2 Concent Red Cell Distribution Width 14.2 Platelet Count 154 Mean Platelet Volume 8.6 Neutrophils (%) (Auto) 73.5 Lymphocytes (%) (Auto) 8.6 Monocytes (%) (Auto) 12.2 Eosinophils (%) (Auto) 5.2 Basophils (%) (Auto) 0.5 Neutrophils # (Auto) 6.1 Lymphocytes # (Auto) 0.7 Monocytes # (Auto) 1.0 Eosinophils # (Auto) 0.4 Basophils # (Auto) 0.0 CBC Comment DIFF FINAL Differential Comment Sodium Level 142 Potassium Level 3.5 Chloride Level 110 Carbon Dioxide Level 24.8 Anion Gap 7 Blood Urea Nitrogen 8 Creatinine 0.98 Estimat Glomerular Filtration 77 Rate Random Glucose 96 Calcium Level 8.8 Phosphorus Level 1.5 Magnesium Level 1.9 Total Bilirubin 1.2 Direct Bilirubin 0.9 Indirect Bilirubin 0.3 Aspartate Amino Transf 49 (AST/SGOT) Alanine Aminotransferase 75 (ALT/SGPT) Alkaline Phosphatase 937 Total Protein 6.6 Albumin 2.2 Date/Time Procedure Status Source Growth 09/15/16 11:55 Gram Stain Received Wound Drainage Pending 09/15/16 11:55 Wound Culture Received Wound Drainage Pending 09/11/16 18:30 Aerobic Blood Culture - Preliminary Resulted Blood Peripheral NO GROWTH IN 4 DAYS 09/11/16 18:30 Anaerobic Blood Culture - Preliminary Resulted Blood Peripheral NO GROWTH IN 4 DAYS Radiology Last Impressions Gall Bladder Ultrasound 09/11/16 1606 Signed Impressions: Service Date/Time: September 17:40 - CONCLUSION: Pancreatic head mass with prominent biliary ductal dilatation Patrick Walsh MD Abdomen/Pelvis CT 09/11/16 1606 Signed Impressions: Service Date/Time: September 16:31 - CONCLUSION: 1. Enlargement of pancreatic head to 6.2 cm. Differential diagnosis is acute pancreatitis and pancreatic malignancy. There is biliary ductal dilatation. There is thickening and edematous change in the adjacent stomach and proximal duodenum. There are borderline enlarged mesenteric lymph nodes. There is some free fluid in the right paracolic gutter and Pradhan's pouch. Neena Forbes MD Cardiovascular: Regular Lungs: Clear Abdomen: Non-distended, Other (RUQ pain with palpation ; mildly distended ) Extremities: No edema Narrative Exam Biliary drain in right upper quadrant A/P Assessment and Plan 65 year old male with pancreatitis vs pancreatic pseudocyst; GI unable to do ERCP -IR consult for PTC drain today -NPO for procedure -Further plans after PTC drain placed Attending Statement NOTE FOR SURGICAL ATTENDING, DR. NEENA PRAKASH I agree with above assessment and plan. The exam, history, and the medical decision-making described in the above note were completed with the assistance of the mid-level provider. I reviewed and agree with the findings presented. I attest that I had a [id number] encounter with the patient on the same day, and personally performed and documented my assessment and findings in the medical record. Patient has biliary drain in place Await brushing/biopsy results I doubt this is a malignancy The following services were provided during this hospital visit: Chart data review, vital sign assessments/reviewing monitor data Review of consultations notes if present. Medication orders/review and/or management Ordering and/or reviewing lab tests Ordering and/or interpreting/reviewing x-rays and/or diagnostic studies Care of the patient and discussion of the patient with the care team Documentation time To help prompt me to consider important information that might be impacting today's encounter and assessment, information from prior notes written by myself or my colleagues may have been "brought forward/copy and pasted" into today's note. Jessica Plascencia September 15, 2016 15:13 Neena Prakash MD September 15, 2016 18:06
[2016-09-15] MEDS: HYDROmorphone HCL PF 1 MG/ML VIAL IV PUSH PRN (15:28)
--- NOTE | 2016-09-15 15:50 | HHI.GIFU ---
GI Follow-up Note Consult Follow-up Subjective: Patient laying in bed comfortably, no new complaints. Feels better after placement of PTC drainage. Drain is in place. No report available yet. No fever or chills. Objective: PHYSICAL EXAMINATION: Vitals signs stable No fever HEENT: Pupils round and reactive to light; normocephalic; atraumatic; no jaundice. Throat is clear. NECK: Neck is supple, no JVD, no lymphadenopathy. CHEST: Chest is clear to auscultation and percussion. CARDIAC: Regular rate and rhythm with no murmur gallop or rubs. ABDOMEN: Soft, nondistended, nontender; no hepatosplenomegaly; bowel sounds are present in all four quadrants. EXTREMITIES: No clubbing, cyanosis, or edema. SKIN: Normal; no rash; no jaundice. CONSTRUCTION TECHNICIAN: No focal deficits; alert and oriented times three. Available Data (labs, X- Rays, Procedues) : CBC & BMP Diagram 09/15/16 02:58 ASSESSMENT/PLAN: Biliary obstruction by mass in head of pancreas. PTC has been performed and drain placed. Pt feels improved. He wishes to return to [place] soon to be at his home. Recommendation: Advance diet at tolerated. Will continue to follow with you. It was a pleasure seeing Jason Mo. Thank you for this consult. Entered by: Galileo Epps MD September 15, 2016 15:50
[2016-09-15] MEDS ORDERED: HYDROmorphone HCL PF 1 MG/ML VIAL IV PRN (17:00)
[2016-09-15] MEDS ORDERED: NALOXONE HCL 0.4 MG/ML AMP IV PRN (17:00)
--- NOTE | 2016-09-15 18:53 | HHI.PR ---
Subjective Remarks Patient seen this afternoon following PTC drain placement. Patient reports sharp pain right upper quadrant at site of PTC drain. Denies any nausea or vomiting. Denies abdominal pain. Would like to start diet. Objective Vital Signs Date Time Temp Pulse Resp B/P Pulse Ox O2 Delivery O2 Flow Rate FiO2 09/15/16 16:00 96.4 50 17 153/70 95 09/15/16 14:26 98.0 95 17 116/61 95 09/15/16 13:25 42 18 146/68 98 09/15/16 12:55 43 18 147/70 97 09/15/16 12:25 44 18 148/68 97 09/15/16 12:10 97.6 49 16 141/70 92 09/15/16 08:00 96.5 46 16 154/69 97 09/15/16 04:00 97.1 47 19 138/63 97 09/15/16 00:00 97.3 50 18 161/66 98 09/14/16 23:58 18 09/14/16 20:00 97.1 50 18 184/74 95 09/14/16 19:37 48 I/O 09/14/16 09/14/16 09/14/16 09/15/16 09/15/16 09/15/16 07:00 15:00 23:00 07:00 15:00 23:00 Intake Total 850 ml 818 ml 978 ml 720 ml 0 ml Output Total 200 ml 300 ml 200 ml Balance 850 ml 618 ml 678 ml 720 ml -200 ml Intake Oral 240 ml 240 ml 120 ml 0 ml IV Total 850 ml 578 ml 738 ml 600 ml Output Urine Total 200 ml 300 ml Drainage Total 200 ml # Voids 3 3 # Bowel Movements 1 1 0 0 Result Diagram: 09/15/16 0258 09/15/16 0258 Objective Remarks GENERAL: Patient sitting up in bed. Appears uncomfortable. Alert and oriented 3. SKIN: Warm and dry. HEAD: Normocephalic. EYES: She does have some scleral icterus. No injection or drainage. NECK: Supple, trachea midline. No JVD. CARDIOVASCULAR: Regular rate and rhythm without murmurs, gallops, or rubs. RESPIRATORY: Breath sounds equal bilaterally. No accessory muscle use. GASTROINTESTINAL: Abdomen soft, non-tender, nondistended. PTC drain right upper quadrant. MUSCULOSKELETAL: No cyanosis, or edema. BACK: Nontender without obvious deformity. No CVA tenderness. A/P Assessment and Plan == 09/15/16 Status post PTC drain placement.discussed with gastroenterology. Starting back on diet. Phosphorus low. Replace. Potassium 3.5. Improved. Monitor. 65-year-old male with a past medical history of CAD, A. fib, CHF, BPH, DM, PUD, and pancreatitis who presented with abdominal pain //Abdominal pain/obstructive jaundice/pancreatic mass: Reviewed: Elevation of total bilirubin, AST, ALT, alkaline phosphatase. Lipase within normal limits. Abdominal CT shows enlargement of the pancreatic head with possible mass, biliary ductal dilation, thickening and edematous change adjacent stomach and proximal duodenum, Motrin and mesenteric lymph nodes, free fluid in the right paracolic gutter and Morison's pouch. Afebrile with no leukocytosis. CEA and CA-19-9 within normal limits. -Consulted gastroenterology, planning on ERCP -Clear liquids for now -IV Dilaudid as needed for pain -Gentle IVF with CHF -Antiemetics as needed -Continue IV Zosyn -Continue IV Protonix -09/15 status post PTC drain placement 09/15. Tolerated procedure well. Diet advancement as per GI. //Hypophosphatemia. -09/15. Phosphorus low. Replace. Monitor. //Diabetes mellitus: -Continue home Levemir. Monitor Accu-Cheks. -Glucose level again reviewed and acceptable. SSI coverage. //A. fib/CAD/CHF/HTN/HLD: Chronic, stable. Hold home aspirin for now pending GI procedure. Continue lisinopril, tamsulosin, Ranexa, carvedilol, atorvastatin , Imdur. -- Still with Bradycardia, however Vital signs continue stable. Continue to Hold Lasix for now. //Hypokalemia: -Improved after after replacement. -Continue to monitor. -09/15. Potassium reviewed. Improved. DVT prophylaxis: Hold Heparin for now with ERCP. SCDs. Hitesh Gilbert MD September 15, 2016 18:53
[2016-09-15] MEDS: ATORVASTATIN 40 MG TAB PO SCH (20:55)
[2016-09-15] MEDS: TAMSULOSIN HCL 0.4 MG CAP PO SCH (20:56)
[2016-09-16] VITALS: BP 176/77; PULSE 48; RESP 19; TEMP 99.7; O2SAT 95
[2016-09-16 03:51] LABS: IGG SUBCLASSES 4 109.2 mg/dL (4-86)
[2016-09-16] MEDS: PIPERACIL-TAZO 3.375 GM PREMIX 50 ML IV SCH ×2 (03:54→10:23)
[2016-09-16] MEDS: PANTOPRAZOLE SODIUM 40 MG VIAL IV PUSH SCH (03:54)
[2016-09-16] MEDS: SODIUM CHLOR 0.9% 1000 ML INJ 1,000 ML IV SCH (03:54)
[2016-09-16] MEDS: INSULIN ASPART SUPPLEMENTAL SCALE SQ SCH ×2 (03:55→11:00)
[2016-09-16] MEDS: DOCUSATE SODIUM 100 MG CAP PO SCH (03:55)
[2016-09-16 04:00] VITALS: BP 159/70; PULSE 49; RESP 19; TEMP 98.1; O2SAT 95
[2016-09-16 06:23] LABS: AUTOMATED NEUTROPHIL # 7.4 TH/MM3 (1.8-7.7); BASOPHIL % 0.4 % (0.0-2.0); EOSINOPHIL # 0.5 TH/MM3 (0-0.4); HEMATOCRIT 27.8 % (39.0-51.0); HEMO FLAGS DIFF FINAL; LYMPH % 6.8 % (9.0-44.0); LYMPHOCYTE # 0.6 TH/MM3 (1.0-4.8); MEAN CELL VOLUME 90.6 FL (80.0-100.0); MEAN CORPUSCULAR HEMOGLOBIN 30.3 PG (27.0-34.0); MEAN CORPUSCULAR HGB CONC 33.4 % (32.0-36.0); MONO % 10.5 % (0.0-8.0); NEUT % 77.3 % (16.0-70.0); PLATELET COUNT 151 TH/MM3 (150-450); RED BLOOD COUNT 3.07 MIL/MM3 (4.50-5.90); RED CELL DISTRIBUTION WIDTH 14.2 % (11.6-17.2); WHITE BLOOD COUNT 9.5 TH/MM3 (4.0-11.0)
[2016-09-16 06:37] LABS: ANION GAP 9 MEQ/L (5-15); AST (GOT) 35 U/L (15-37); BICARBONATE 25.3 MEQ/L (21.0-32.0); BLOOD UREA NITROGEN 10 MG/DL (7-18); CHLORIDE 106 MEQ/L (98-107); GLOMERULAR FILTRATION RATE 76 ML/MIN (>89); POTASSIUM 3.5 MEQ/L (3.5-5.1); SODIUM (NA) 140 MEQ/L (136-145)
[2016-09-16 06:41] LABS: ALKALINE PHOSPHATASE 753 U/L (45-117); ALT (GPT) 61 U/L (12-78); TOTAL BILIRUBIN ADULT 1.3 MG/DL (0.2-1.0)
[2016-09-16] MEDS: CARVEDILOL 3.125 MG TAB PO SCH (07:59)
[2016-09-16 08:00] VITALS: BP 137/65; PULSE 45; RESP 17; TEMP 97.3; O2SAT 93
[2016-09-16] MEDS: RANOLAZINE 500 MG EXTENDED RELEASE TAB PO SCH (08:19)
[2016-09-16] MEDS: SODIUM CHLORIDE 0.9% FLUSH 10 ML FLUSH IV FLUSH SCH (08:20)
[2016-09-16] MEDS: ISOSORBIDE MONONITRATE 30 MG TAB PO SCH (08:20)
[2016-09-16] MEDS: PANTOPRAZOLE SOD 40 MG DELAYED RELEASE TAB PO SCH (08:20)
[2016-09-16] MEDS: LISINOPRIL 5 MG TAB PO SCH (08:20)
[2016-09-16 08:50] VITALS: PULSE 45
[2016-09-16] MEDS: INSULIN DETEMIR 100 UNITS/ML VIAL SQ SCH (09:35)
[2016-09-16 12:00] VITALS: BP 143/63; PULSE 50; RESP 17; TEMP 96.7; O2SAT 96
--- NOTE | 2016-09-16 12:22 | HHI.FF ---
Face to Face Verification Diagnosis: (1) Pancreatitis (2) Pancreatic mass (3) Biliary obstruction Home Health Nursing Order: Wound care and dressing changes Nursing assessment with vital signs Instructions: will need dressing changes and drainage of bag for percutaneous biliary drain. I have seen patient Jason Mo on 09/16/16. My clinical findings support the need for the requested home health care services because: Limited ability to care for self I certify that my clinical findings support that this patient is homebound because: Unsafe to leave home unassisted Hitesh Gilbert MD September 16, 2016 12:22
[2016-09-16] MEDS ORDERED: LEVA750T PO (12:29)
[2016-09-16] MEDS ORDERED: OXYC-392 PO (12:29)
--- NOTE | 2016-09-16 12:42 | HHI.PR ---
Subjective Remarks pt feels well. no CP or sob. abd pain improved. walking all the way to patient elevators and back. tolerating diet. would like to go home ziggy saeed in GI. cont levaquin, f/u with GI as outpt. will have for PTC care. Objective Vital Signs Date Time Temp Pulse Resp B/P Pulse Ox O2 Delivery O2 Flow Rate FiO2 09/16/16 12:00 96.7 50 17 143/63 96 09/16/16 08:50 45 09/16/16 08:00 97.3 45 17 137/65 93 09/16/16 04:00 98.1 49 19 159/70 95 09/16/16 00:00 99.7 48 19 176/77 95 09/15/16 20:00 97.2 48 18 160/71 96 09/15/16 16:00 96.4 50 17 153/70 95 09/15/16 14:26 98.0 95 17 116/61 95 09/15/16 13:25 42 18 146/68 98 09/15/16 12:55 43 18 147/70 97 I/O 09/15/16 09/15/16 09/15/16 09/16/16 09/16/16 09/16/16 07:00 15:00 23:00 07:00 15:00 23:00 Intake Total 720 ml 0 ml 220 ml 460 ml Output Total 200 ml 225 ml 150 ml Balance 720 ml -200 ml -5 ml 310 ml Intake Oral 120 ml 0 ml 120 ml 360 ml IV Total 600 ml 100 ml 100 ml Drainage Total 200 ml 225 ml 150 ml # Voids 3 3 2 2 # Bowel Movements 0 0 0 0 Result Diagram: 09/16/16 0509/16/16 05 Imaging Last Impressions Gall Bladder Ultrasound 09/11/166 Signed Impressions: Service Date/Time: September 17:40 - CONCLUSION: Pancreatic head mass with prominent biliary ductal dilatation Patrick Walsh MD Abdomen/Pelvis CT 09/11/16 1606 Signed Impressions: Service Date/Time: September 16:31 - CONCLUSION: 1. Enlargement of pancreatic head to 6.2 cm. Differential diagnosis is acute pancreatitis and pancreatic malignancy. There is biliary ductal dilatation. There is thickening and edematous change in the adjacent stomach and proximal duodenum. There are borderline enlarged mesenteric lymph nodes. There is some free fluid in the right paracolic gutter and Pradhan's pouch. Royce Forbes MD Procedures PTC drain placement 09/15/16. Unsuccessful ERCP 09/11/16 Objective Remarks GENERAL: Patient standing in room. Appears uncomfortable. Alert and oriented 3. SKIN: Warm and dry. HEAD: Normocephalic. EYES: She does have some scleral icterus. No injection or drainage. NECK: Supple, trachea midline. No JVD. CARDIOVASCULAR: Regular rate and rhythm without murmurs, gallops, or rubs. RESPIRATORY: Breath sounds equal bilaterally. No accessory muscle use. GASTROINTESTINAL: Abdomen soft, non-tender, nondistended. PTC drain right upper quadrant. brown drainage in bag. nurse reports 450ml in bag this am. MUSCULOSKELETAL: No cyanosis, or edema. BACK: Nontender without obvious deformity. No CVA tenderness. A/P Assessment and Plan == 09/16/16 dw rodger hold in GI. cont levaquin, f/u with GI as outpt. will have hh for PTC care. potassium stable. 65-year-old male with a past medical history of CAD, A. fib, CHF, BPH, DM, PUD, and pancreatitis who presented with abdominal pain //Abdominal pain/obstructive jaundice/pancreatic mass: Reviewed: Elevation of total bilirubin, AST, ALT, alkaline phosphatase. Lipase within normal limits. Abdominal CT shows enlargement of the pancreatic head with possible mass, biliary ductal dilation, thickening and edematous change adjacent stomach and proximal duodenum, Motrin and mesenteric lymph nodes, free fluid in the right paracolic gutter and Morison's pouch. Afebrile with no leukocytosis. CEA and CA-19-9 within normal limits. -Consulted gastroenterology, planning on ERCP -Clear liquids for now -IV Dilaudid as needed for pain -Gentle IVF with CHF -Antiemetics as needed -Continue IV Zosyn -Continue IV Protonix -status post PTC drain placement 09/15. Tolerated procedure well. Diet advancement as per GI. -DC home f.u with GI //Hypophosphatemia. -09/15. Phosphorus low. Replaced. -can be followed up as outpt //Diabetes mellitus: -Continue home Levemir. Monitor Accu-Cheks. -Glucose level again reviewed and acceptable. SSI coverage. //A. fib/CAD/CHF/HTN/HLD: Chronic, stable. Hold home aspirin for now pending GI procedure. Continue lisinopril, tamsulosin, Ranexa, carvedilol, atorvastatin , Imdur. -- Still with Bradycardia, however Vital signs continue stable. -hold carvedilol for bradycardia //Hypokalemia: -Improved after after replacement. -Continue to monitor. -Potassium reviewed. cont home replacement DVT prophylaxis: dc home Discharge Planning DC home with hh for drain care. f/u gi and PCP Hitesh Gilbert MD September 16, 2016 12:42
--- NOTE | 2016-09-16 12:43 | HHI.DS ---
Discharge Summary Admission Date September 11, 2016 at 16:34 Discharge Date: September 16, 2016 Admitting Diagnosis jaundice (1) Abdominal pain ICD Code: R10.9 (2) Pancreatic mass ICD Code: K86.9 Procedures ERCP - failed 09/12/16 PTC drain placement 09/15/16 Brief History - From Admission 65-year-old male with a past medical history of CAD, A. fib, CHF, BPH, DM, PUD, and pancreatitis who presented with abdominal pain. The patient states that 8 days ago he began having abdominal discomfort. He states it felt like he was kicked in the stomach in a bandlike distribution across his midabdomen. He states that his symptoms got a little bit better for 2 or 3 days, but then having getting progressively worse since then. He's been having associated nausea and bloating. He denies any vomiting, but he feels scared to eat. He states that 5 days ago he had diarrhea, now his stools are soft but no longer watery. He states that he had chills last night, denies any specific fevers. The patient's reports that the patient has appeared yellow for the past 10 days. The patient states that last July he had his gallbladder removed. The patient states that he had an extensive hospitalization last December when he was critically ill from pancreatitis. He states he also had a hospitalization in May and June of this year where he had a pancreatic cyst that required a drain placement. The patient states that most of this workup was done where he lives most of the time in [place], but he also has a house here in the area where he and his are visiting currently. CBC/BMP: 09/16/16 0517 09/16/16 0517 Significant Findings Laboratory Tests Test 09/14/16 09/15/16 09/16/16 04:57 02:58 05:17 Red Blood Count 3.09 MIL/MM3 3.11 MIL/MM3 3.07 MIL/MM3 (4.50-5.90) (4.50-5.90) (4.50-5.90) Hemoglobin 9.3 GM/DL 9.4 GM/DL 9.3 GM/DL (13.0-17.0) (13.0-17.0) (13.0-17.0) Hematocrit 28.0 % 28.2 % 27.8 % (39.0-51.0) (39.0-51.0) (39.0-51.0) Platelet Count 149 TH/MM3 (150-450) Neutrophils (%) (Auto) 75.8 % 73.5 % 77.3 % (16.0-70.0) (16.0-70.0) (16.0-70.0) Lymphocytes (%) (Auto) 7.1 % 8.6 % 6.8 % (9.0-44.0) (9.0-44.0) (9.0-44.0) Monocytes (%) (Auto) 12.6 % 12.2 % 10.5 % (0.0-8.0) (0.0-8.0) (0.0-8.0) Eosinophils (%) (Auto) 4.2 % (0.0-4.0) 5.2 % (0.0-4.0) 5.0 % (0.0-4.0) Lymphocytes # (Auto) 0.6 TH/MM3 0.7 TH/MM3 0.6 TH/MM3 (1.0-4.8) (1.0-4.8) (1.0-4.8) Monocytes # (Auto) 1.1 TH/MM3 1.0 TH/MM3 1.0 TH/MM3 (0-0.9) (0-0.9) (0-0.9) Potassium Level 3.2 MEQ/L (3.5-5.1) Chloride Level 108 MEQ/L 110 MEQ/L (98-107) (98-107) Estimat Glomerular Filtration 71 ML/MIN (>89) 77 ML/MIN (>89) 76 ML/MIN (>89) Rate Calcium Level 8.2 MG/DL (8.5-10.1) Total Bilirubin 1.5 MG/DL 1.2 MG/DL 1.3 MG/DL (0.2-1.0) (0.2-1.0) (0.2-1.0) Aspartate Amino Transf 42 U/L (15-37) 49 U/L (15-37) (AST/SGOT) Alanine Aminotransferase 84 U/L (12-78) (ALT/SGPT) Alkaline Phosphatase 943 U/L 937 U/L 753 U/L (45-117) (45-117) (45-117) Albumin 2.1 GM/DL 2.2 GM/DL 2.3 GM/DL (3.4-5.0) (3.4-5.0) (3.4-5.0) Phosphorus Level 1.5 MG/DL (2.5-4.9) Direct Bilirubin 0.9 MG/DL (0.0-0.2) Eosinophils # (Auto) 0.5 TH/MM3 (0-0.4) Imaging Last Impressions Gall Bladder Ultrasound 09/11/16 1606 Signed Impressions: Service Date/Time: September 17:40 - CONCLUSION: Pancreatic head mass with prominent biliary ductal dilatation Patrick Walsh MD Abdomen/Pelvis CT 09/11/16 1606 Signed Impressions: Service Date/Time: , September 11, 2016 16:31 - CONCLUSION: 1. Enlargement of pancreatic head to 6.2 cm. Differential diagnosis is acute pancreatitis and pancreatic malignancy. There is biliary ductal dilatation. There is thickening and edematous change in the adjacent stomach and proximal duodenum. There are borderline enlarged mesenteric lymph nodes. There is some free fluid in the right paracolic gutter and Pradhan's pouch. Royce Forbes MD PE at Discharge GENERAL: Well-developed well-nourished. In no acute distress. SKIN: Warm and dry. Jaundiced. HEENT: Normocephalic. Pupils equal and round. Scleral icterus. Mucous membranes pink and moist. CARDIOVASCULAR: Regular rate and rhythm. No murmur appreciated. RESPIRATORY: No accessory muscle use. Clear to auscultation. Breath sounds equal bilaterally. GASTROINTESTINAL: Abdomen soft, nontender, nondistended. Bowel sounds x4. MUSCULOSKELETAL: No obvious deformities. No clubbing or cyanosis. No edema. NEUROLOGICAL: Awake and alert. No focal neurological deficits. Moves upper and lower extremities spontaneously. Normal speech. PSYCHIATRIC: Appropriate mood and affect; insight and judgment normal. Hospital Course Patient was managed with IV fluids with some improvement. Imaging as above shows pancreatic head mass with ductal dilation. Gastroenterology was consulted. PTC drain was placed with improvement. Patient will return to [place], follow with primary care for further evaluation of pancreatic head mass. Patient conveys understanding. For problem-based summary from most recent progress note, please see below. == 09/16/16 dw rodger hold in GI. cont levaquin, f/u with GI as outpt. will have for PTC care. potassium stable. 65-year-old male with a past medical history of CAD, A. fib, CHF, BPH, DM, PUD, and pancreatitis who presented with abdominal pain //Abdominal pain/obstructive jaundice/pancreatic mass: Reviewed: Elevation of total bilirubin, AST, ALT, alkaline phosphatase. Lipase within normal limits. Abdominal CT shows enlargement of the pancreatic head with possible mass, biliary ductal dilation, thickening and edematous change adjacent stomach and proximal duodenum, Motrin and mesenteric lymph nodes, free fluid in the right paracolic gutter and Morison's pouch. Afebrile with no leukocytosis. CEA and CA-19-9 within normal limits. -Consulted gastroenterology, planning on ERCP -Clear liquids for now -IV Dilaudid as needed for pain -Gentle IVF with CHF -Antiemetics as needed -Continue IV Zosyn -Continue IV Protonix -status post PTC drain placement 09/15. Tolerated procedure well. Diet advancement as per GI. -DC home f.u with GI //Hypophosphatemia. -09/15. Phosphorus low. Replaced. -can be followed up as outpt //Diabetes mellitus: -Continue home Levemir. Monitor Accu-Cheks. -Glucose level again reviewed and acceptable. SSI coverage. //A. fib/CAD/CHF/HTN/HLD: Chronic, stable. Hold home aspirin for now pending GI procedure. Continue lisinopril, tamsulosin, Ranexa, carvedilol, atorvastatin , Imdur. -- Still with Bradycardia, however Vital signs continue stable. -hold carvedilol for bradycardia //Hypokalemia: -Improved after after replacement. -Continue to monitor. -Potassium reviewed. cont home replacement DVT prophylaxis: dc home Discharge Planning DC home with hh for drain care. f/u gi and PCP Pt Condition on Discharge: Good Discharge Disposition: Disch w/ Home Health Serv Discharge Time: > 30 minutes Discharge Instructions DIET: Follow Instructions for: Diabetic Diet Activities you can perform: Regular-No Restrictions Follow up Referrals: Gastroenterology - 1 Week with Lindsay Sam MD PCP Follow-up - 1 Week New Medications: Levofloxacin (Levaquin) 750 Mg Tab 750 MG PO DAILY Infection Days 10 Ref 0 TAB Oxycodone (Oxycodone) 5 Mg Tab 5 MG PO Q4H PRN PAIN SCALE 1 TO 10 #42 TAB Continued Medications: Aspirin DR (Aspirin DR) 81 Mg Tabdr 81 MG PO HS Ref 0 TAB Atorvastatin (Atorvastatin) 40 Mg Tab 40 MG PO HS Cholesterol Management #30 Ref 0 TAB Cholecalciferol (Vitamin D3) 2,000 Unit Tab 2000 UNITS PO DAILY Nutritional Supplement #1 Ref 0 BOTTLE Furosemide (Lasix) 20 Mg Tab 20 MG PO BID #60 Ref 0 TAB Furosemide (Lasix) 20 Mg Tab 20 MG PO DAILY #30 Ref 0 TAB Insulin Detemir Inj (Levemir Inj) 1,000 unit/ 10 ML Vial 10 UNITS SQ BID Do not mix with any other Insulin. Blood Sugar Management Ref 0 VIAL Insulin Human NPH Inj (Humulin N Inj) 1,000 Unit/10 Ml Vial Unknown Dose SQ ACHS PRN SLIDING SCALE #10 Ref 0 ML Isosorbide Mononitrate ER (Isosorbide Mononitrate ER) 30 Mg Cee 30 MG PO DAILY Prevent Chest Pain #30 Ref 0 TAB Lisinopril (Lisinopril) 5 Mg Tab 5 MG PO BID Blood Pressure Management #30 Ref 0 TAB Magnesium Oxide (Magnesium Oxide) 400 Mg Tab 400 MG PO HS Nutritional Supplement Ref 0 TAB Multiple Vitamin (Multiple Vitamin) 1 Tab 1 TAB PO DAILY Nutritional Supplement Ref 0 TAB Nitroglycerin Lingual Chel[place] (Nitromist Lingual Chelan) 400 Mcg/Act [place] 1 SPRAY SL DIRECTED ONE SPRAY NEEDED FOR CHEST PAIN, MAY REPEAT EVERY FIVE MINUTES FOR A TOTAL OF 3 DOSES OR CALL 911 IF NO RELIEF PRN CHEST PAIN #1 Ref 0 CONTAINER Pantoprazole (Protonix) 40 Mg Tab 40 MG PO DAILY Reflux #30 Ref 0 TAB Potassium Chloride ER (K-Tab) 20 Meq Tab 20 MEQ PO DAILY Electrolyte Replacement #30 Ref 0 TAB Ranolazine ER 12 HR (Ranexa ER 12 HR) 500 Mg Tab 500 MG PO BID Chest Pain #60 Ref 0 TAB Tamsulosin (Tamsulosin) 0.4 Mg Cap 0.4 MG PO HS Manage Prostate Problems #30 Ref 0 CAP Discontinued Medications: Carvedilol (Carvedilol) 3.125 Mg Tab 3.125 MG PO DAILY #60 Ref 0 TAB Hitesh Gilbert MD September 16, 2016 12:43
--- NOTE | 2016-09-16 13:43 | HHI.GIFU ---
Subjective Remarks Sitting on edge of bed. Tolerating diet. No nausea, vomiting, abdominal pain, fever, or chills. Objective Vitals I&O Vital Signs Date Time Temp Pulse Resp B/P Pulse Ox O2 Delivery O2 Flow Rate FiO2 09/16/16 12:00 96.7 50 17 143/63 96 09/16/16 08:50 45 09/16/16 08:00 97.3 45 17 137/65 93 09/16/16 04:00 98.1 49 19 159/70 95 09/16/16 00:00 99.7 48 19 176/77 95 09/15/16 20:00 97.2 48 18 160/71 96 09/15/16 16:00 96.4 50 17 153/70 95 09/15/16 14:26 98.0 95 17 116/61 95 09/15/16 13:25 42 18 146/68 98 I/O 09/15/16 09/15/16 09/15/16 09/16/16 09/16/16 09/16/16 07:00 15:00 23:00 07:00 15:00 23:00 Intake Total 720 ml 0 ml 220 ml 460 ml Output Total 200 ml 225 ml 150 ml Balance 720 ml -200 ml -5 ml 310 ml Intake Oral 120 ml 0 ml 120 ml 360 ml IV Total 600 ml 100 ml 100 ml Drainage Total 200 ml 225 ml 150 ml # Voids 3 3 2 2 # Bowel Movements 0 0 0 0 Laboratory Laboratory Tests Test 09/16/16 05:17 White Blood Count 9.5 Red Blood Count 3.07 Hemoglobin 9.3 Hematocrit 27.8 Mean Corpuscular Volume 90.6 Mean Corpuscular Hemoglobin 30.3 Mean Corpuscular Hemoglobin 33.4 Concent Red Cell Distribution Width 14.2 Platelet Count 151 Mean Platelet Volume 8.4 Neutrophils (%) (Auto) 77.3 Lymphocytes (%) (Auto) 6.8 Monocytes (%) (Auto) 10.5 Eosinophils (%) (Auto) 5.0 Basophils (%) (Auto) 0.4 Neutrophils # (Auto) 7.4 Lymphocytes # (Auto) 0.6 Monocytes # (Auto) 1.0 Eosinophils # (Auto) 0.5 Basophils # (Auto) 0.0 CBC Comment DIFF FINAL Differential Comment Sodium Level 140 Potassium Level 3.5 Chloride Level 106 Carbon Dioxide Level 25.3 Anion Gap 9 Blood Urea Nitrogen 10 Creatinine 0.99 Estimat Glomerular Filtration 76 Rate Random Glucose 99 Calcium Level 8.9 Total Bilirubin 1.3 Aspartate Amino Transf 35 (AST/SGOT) Alanine Aminotransferase 61 (ALT/SGPT) Alkaline Phosphatase 753 Total Protein 6.6 Albumin 2.3 Date/Time Procedure Status Source Growth 09/15/16 11:55 Gram Stain - Final Resulted Wound Drainage 09/15/16 11:55 Wound Culture - Preliminary Resulted Wound Drainage NO GROWTH IN 24 HOURS. 09/11/16 18:30 Aerobic Blood Culture - Final Complete Blood Peripheral NO GROWTH IN 5 DAYS 09/11/16 18:30 Anaerobic Blood Culture - Final Complete Blood Peripheral NO GROWTH IN 5 DAYS Imaging Last Impressions Gall Bladder Ultrasound 09/11/16 1606 Signed Impressions: Service Date/Time: September 17:40 - CONCLUSION: Pancreatic head mass with prominent biliary ductal dilatation Patrick Walsh MD Abdomen/Pelvis CT 09/11/16 1606 Signed Impressions: Service Date/Time: September 16:31 - CONCLUSION: 1. Enlargement of pancreatic head to 6.2 cm. Differential diagnosis is acute pancreatitis and pancreatic malignancy. There is biliary ductal dilatation. There is thickening and edematous change in the adjacent stomach and proximal duodenum. There are borderline enlarged mesenteric lymph nodes. There is some free fluid in the right paracolic gutter and Pradhan's pouch. Royce Forbes MD Physical Exam HEENT: Normocephalic; atraumatic; no jaundice. CHEST: CTA CARDIAC: RRR ABDOMEN: Soft, nondistended, epigastric tenderness; no hepatosplenomegaly; bowel sounds are present in all four quadrants. Biliary tube patent EXTREMITIES: No clubbing, cyanosis, or edema. SKIN: Normal; no rash; no jaundice. BLEMISH REMOVER: No focal deficits; alert and oriented times three. Assessment and Plan Plan ASSESSMENT - Biliary obstruction, Elevated LFTs. Abdomen/Pelvis CT (09/11/16)---> 1. Enlargement of pancreatic head to 6.2 cm. Differential diagnosis is acute pancreatitis and pancreatic malignancy. There is biliary ductal dilatation. There is thickening and edematous change in the adjacent stomach and proximal duodenum. There are borderline enlarged mesenteric lymph nodes. There is some free fluid in the right paracolic gutter and Pradhan's pouch. Gall Bladder US (09/11/16)----- > Pancreatic head mass with prominent biliary ductal dilatation S/P Unsuccessful ERCP (09/02/16)-----> Unable to pass the ERCP scope from the stomach into the duodenum and subsequently an EGD was performed and it was determined that the patient had compression of the antrum and the duodenal bulb. Hiatal hernia, Antral and duodenal deformity from external compression. S/P PTHC (09/15/16)----> obstruction of CBD at pancreatic head level. Placed int/ext biliary drain. Can consider biopsy of CBD following several days of decompression. T Bili 1.3, AST 35, ALT 61, Alk Phosph 753. Clinically, doing well. - Pancreatic head mass. Of note, patient has a hx of pancreatitis. Had PTHC, recommended biopsy after several days of decompression. CEA 1.8, Ca19-9 22.8. IgG 4 level 109.2. ? Autoimmune pancreatitis. - Abdominal pain, nausea secondary to above. Controlled. PLAN - NICHOLAS - CBC, CMP on Thursday - FU Dr. Flaco RICHARDS 09/25/16 at 11am at [place]. Appointment given to patient - Will need to follow up with GI/IR back in [place] for pancreatic head mass biopsy/care of PTHC. Per Dr. Rhodes, if patient's FU care will be in [place], then ideally the biopsy should be done in [place]. - Notify GI of any fevers, worsening pain, leukocytosis - Pt seen and examined by Dr. Tomlinson and myself and this note is written on his behalf Bettye Joel September 16, 2016 13:42
--- NOTE | 2016-09-17 12:59 | RADRPT ---
EXAM DATE/TIME: 09/15/2016 11:05 [place] COMPARISON: No previous studies available for comparison. INDICATIONS : Abdominal pain with juandiace. MEDICAL HISTORY : 1. CAD 2. A fib 3. CHF 4. BPH 5. DM 6. PUD 7. Pancreatitis SURGICAL HISTORY : 1. Gall bladder removed 2. CABG 3. Heart cath 4. Joint replacement ENCOUNTER: Initial ACUITY: 3 weeks PAIN SCORE: 0/10 FLUORO TIME: 19.5 IMAGE SERIES: 3 SEDATION TIME: 60 minutes CONTRAST: 65 cc Omnipaque (iohexol) 350 MEDICATION(S): 1.) 3 mg midazolam (Versed) IV 2.) 150 mcg fentanyl (Sublimaze) IV Prophylactic antibiotics were administered with appropriate pre-procedure timing. DEVICE(S): 1.) 8 [place] internal/external biliary drain PROCEDURE : 1. Ultrasound guided puncture of the biliary tree. 2. Percutaneous antegrade cholangiogram. 3. Biliary stent placement. 4. Conscious sedation with continuous EKG and oximetry monitoring. The risks, benefits and alternatives to the procedure were explained and verbal and written consent w as obtained. The site was prepped in sterile fashion. Full sterile technique was used, including ca p, mask, sterile gloves and gown and a large sterile sheet. Hand hygiene and 2% chlorhexidine and/or betadine/alcohol prep was utilized per protocol for cutaneous antisepsis. The skin and subcutaneous tissues were infiltrated with local anesthetic solution. With ultrasound and fluoroscopic guidance the biliary tree was punctured with a 22 gauge Chiba needle and the biliary tree was opacified. An Accustick set was used to gain access to the biliary tree and a guidewire was passed into the duodenum. Serial dilatation was performed to accept the prescribed catheter. Injection of positive contrast demonstrates appropriate position. Conscious sedation was performed with the prescribed dosages and duration as above in the presence of an independent trained radiology nurse to assist in the monitoring of the patient. EKG and oximetry remained stable throughout the procedure. The patient tolerated the procedure well and there were n o complications. The patient was sent to post anesthesia recovery in stable condition. CONCLUSION: Uncomplicated biliary stent placement as above. The patient has biliary obstruction occurring at the level of the pancreatic head with resulting intrahepatic and extrahepatic biliary dilatation. Conside ration can be made to biopsy following several days of decompression. Horacio Garrido Jr., MD on September 17, 2016 at 12:55 Board Certified Radiologist. This report was verified electronically.
== END 2016-09-16 14:07 | disposition home health service (06) | DRG 444 ==
LOC: NEPC 13:01 → NEDA 16:34 → N07B 18:57
PROVIDERS: ADMIT Internal Medicine; ATTEND Internal Medicine
PROC: 0DJ08ZZ Inspection of Upper Intestinal Tract, Via Natural or Artificial Opening Endoscopic (ICD-10-PCS; 2016-09-12 15:15)
PROC: 0F793DZ Dilation of Common Bile Duct with Intraluminal Device, Percutaneous Approach (ICD-10-PCS; principal; 2016-09-15)
DX: K83.1 Obstruction of bile duct (principal); K85.90 Acute pancreatitis without necrosis or infection, unspecified; E11.22 Type 2 diabetes mellitus with diabetic chronic kidney disease; I13.0 Hypertensive heart and chronic kidney disease with heart failure and stage 1 through stage 4 chronic kidney disease, or unspecified chronic kidney disease; I50.9 Heart failure, unspecified; I48.91 Unspecified atrial fibrillation; E83.39 Other disorders of phosphorus metabolism; E78.5 Hyperlipidemia, unspecified; I25.10 Atherosclerotic heart disease of native coronary artery without angina pectoris; E87.6 Hypokalemia; K86.9 Disease of pancreas, unspecified; N40.0 Benign prostatic hyperplasia without lower urinary tract symptoms; K44.9 Diaphragmatic hernia without obstruction or gangrene; R00.1 Bradycardia, unspecified; G47.33 Obstructive sleep apnea (adult) (pediatric); E66.9 Obesity, unspecified; F17.210 Nicotine dependence, cigarettes, uncomplicated; N18.9 Chronic kidney disease, unspecified; K21.9 Gastro-esophageal reflux disease without esophagitis; Z95.5 Presence of coronary angioplasty implant and graft; Z95.1 Presence of aortocoronary bypass graft; Z68.34 Body mass index [BMI] 34.0-34.9, adult; Z79.4 Long term (current) use of insulin
CPT/HCPCS: 47540; 74177; 74330; 76000; 76705; 76937; 80048; 80053; 80061; 80069; 80076; 81001; 82378; 82550; 82784; 82787; 82948; 83605; 83690; 83735; 84484; 85025; 85610; 85730; 86301; 87040; 87070; 87205; 93005; 96361; 96365; 96375; 99151; 99152; 99153; C1729; C1769; C1887; C1894; C9113; J1170; J1644; J1815; J1956; J2250; J2405; J2543; J3010; J3475; J3480; J7030; Q9967